=== PATIENT | female | born 1985 | race Caucasian/White ===

== ENCOUNTER 2020-08-25 16:21 | Observation (INO) | payer MEDICAID, SELFPAY ==
--- NOTE | ~2020-08-25 | CT_ITS ---
EXAMINATION: CT abdomen pelvis w con DATE: 08/25/2020 17:16 INDICATION: Right lower quadrant abdominal pain TECHNIQUE: Computed tomography (CT) of the abdomen and pelvis was performed without intravenous contr ast. Automated exposure control and iterative reconstruction technique were employed. Exam dose: 269 .61 mGy-cm total exam DLP. COMPARISON: None. FINDINGS: The lung bases are clear. Normal heart size. No pericardial or pleural effusion. The liver, spleen, pancreas, and adrenal glands are unremarkable. The gallbladder is present. No bile duct or pancreatic duct dilatation. 6 mm right renal cyst. Multiple up to 9 mm left renal cysts. No urinary tract calculus or hydroureteronephrosis. Normal caliber of the abdominal aorta. No intraperitoneal or retroperitoneal or pelvic mass lesion or adenopathy. Probable ruptured peripherally enhancing 1.3 cm left ovarian cyst. There is mild free fluid in the pe lvis. The uterus and adnexal areas are otherwise unremarkable. There are nondilated fluid containing small bowel segments with occasional air-fluid levels, suggesti ng mild adynamic ileus. There is a prominent of fecal material in the colon suggesting constipation.. The appendix is not definitively localized but no CT evidence of appendicitis is noted. Clinical cor relation is advised. No bowel obstruction, bowel wall thickening, pneumatosis or intraperitoneal free air. No suspicious osteolytic or osteoblastic lesions are noted. IMPRESSION: Probable ruptured 1.3 cm left ovarian cyst with mild free fluid in the pelvis Multiple subcentimeter renal cysts Appendix is not definitively localized. No apparent evidence of appendicitis. Clinical correlation is advised. Reviewed, dictated and finalized at [facility]. Reviewed, dictated and finalized at [facility]. STS' MODEL IMPRESSION: Probable ruptured 1.3 cm left ovarian cyst with mild free fluid in the pelvis Multiple subcentimeter renal cysts Appendix is not definitively localized. No apparent evidence of appendicitis. C linical correlation is advised.
--- NOTE | ~2020-08-25 | US_ITS ---
US pelvic complete DATE: 08/25/2020 19:06 INDICATION: Right adnexal pain TECHNIQUE: Real-time imaging of the pelvis COMPARISON: None FINDINGS: The uterus measures approximately 8 cm height, 4.1 cm anteroposterior and 5.3 cm transverse dimension. Approximately 1.3 cm hypoechoic lesion of the left ovary with surrounding vascularity, likely a small cyst. No free fluid is evident. Patient declined completion of the procedure prior to evaluation of the right ovary and adnexal area. IMPRESSION: Incomplete examination 1.3 cm left ovarian cyst Reviewed, dictated and finalized at [facility]. Reviewed, dictated and finalized at [facility]. ERGARTEN PARAPROFESSIONAL
[2020-08-25 16:23] VITALS: BP 151/96; PULSE 88; RESP 20; TEMP 36.7; O2SAT 100
[2020-08-25 16:47] LABS: Basophils Absolute Auto 0.1 K/mm3 (0.0-0.1); Basophils Percent Auto 0.4 % (0.2-1.2); Eosinophils Absolute Auto 0.1 K/mm3 (0-0.3); Hematocrit 42.8 % (37.0-47.0); Hemoglobin 14.1 g/dL (12.0-15.0); Immature Granulocyte Absolute 0.04 K/mm3 (0.00-0.031); Immature Granulocyte Percent A 0.3 % (0-0.5); Lymphocytes Absolute Auto 1.51 K/mm3 (0.9-3.2); Lymphocytes Percent Auto 13.1 % (18.3-44.2); Mean Corpuscular HGB Conc 32.9 g/dl (32-36); Mean Corpuscular Hemoglobin 28.7 pg (26-34); Monocytes Absolute Auto 1.1 K/mm3 (0.1-0.6); Monocytes Percent Auto 9.7 % (2.6-8.5); Neutrophils Absolute Auto 8.7 K/mm3 (1.3-6.7); Neutrophils Percent Auto 75.5 % (45.5-73.1); Platelet Count Result 187 k/mm3 (150-375); Red Blood Count 4.92 M/mm3 (4.2-5.4); Red Cell Distribution Width 13.3 % (11.5-14.5); White Blood Count 11.5 K/mm3 (4.5-10.0)
[2020-08-25 16:53] LABS: Add Urine Microscopic? YES; Amorphous Sediment Urine Few; Appearance Urine Cloudy (Clear); Bacteria Urine Trace /hpf; Bilirubin Urine Negative (Negative); Blood Urine Negative (Negative); Color Urine Yellow (Yellow); Glucose Urine UA Negative (Negative); Ketones Urine Negative (Negative); Leukocyte Esterase Ur Trace LEU/UL (Negative); Mucus Urine Rare /lpf; Nitrate Urine Negative (Negative); Protein Urine Negative (Negative); RBC Urine 0-2 /hpf (0-2); Specific Grav Ur 1.014 (1.001-1.035); Squamous Epithelial Cell Urine Few /hpf (Few); Urobilinogen Urine Negative mg/dL (<2.0)
[2020-08-25 16:59] LABS: Alanine Aminotransferase 11 U/L (4-35); Alkaline Phosphatase 38 U/L (38-126); Anion Gap -1 mmol/L (8-16); Aspartate Amino Transferase 19 U/L (14-36); Bilirubin,Total 0.4 mg/dL (0.2-1.3); Blood Urea Nitrogen 14 mg/dL (7-17); Calcium 9.3 mg/dL (8.4-10.2); Carbon Dioxide 32 mmol/L (22-30); Chloride 103 mmol/L (98-107); Estimated CRCL calculation 59 ml/min; Estimated Glomerular Filt Rate 56; Glucose 98 mg/dL (65-105); Lipase 69 U/L (23-300); Potassium 3.7 mmol/L (3.4-5.0); Sodium 134 mmol/L (137-145)
[2020-08-25] MEDS: MORPHINE SULFATE (*CRX) 4 MG/ML INJ IV PUSH ×3 (17:05→20:50)
--- NOTE | 2020-08-25 18:52 | PC.NURSE ---
rn called to ultrasound dept to medicate pt for pain. morphine 4 mg iv push given.
--- NOTE | 2020-08-25 19:43 | ED.GENADULT ---
HPI - General Adult General Chief complaint: Abdominal Pain Stated complaint: abdominal pain Time Seen by Provider: 08/25/20 16:53 History of Present Illness HPI narrative: Patient is a 35-year-old female who presents ER with right lower quadrant abdominal pain. Began last night and has increased in intensity throughout the day. Cannot move without having excruciating pain. No radiation. Denies urinary frequency urgency. Denies any nausea/vomiting/diarrhea/constipation. Has not had an appendectomy. Denies previous issues with her ovaries. She does not believe that she is because she has had a tubal ligation. Related Data Home Medications Medication Instructions Recorded Confirmed No Home Medications 08/25/20 08/25/20 Allergies Allergy/AdvReac Type Severity Reaction Status Date / Time No Known Allergies Allergy Mild Verified 08/25/20 16:25 Review of Systems Review of Systems: All systems reviewed & are unremarkable except as noted in HPI and below Constitutional: Constitutional: Denies chills, Denies fever(s) and Denies weakness ENT: Denies nasal congestion and Denies sore throat Cardiovascular: Cardiovascular: Denies chest pain and Denies radiating jaw, neck or arm pain Gastrointestinal: Gastrointestinal: Reports abdominal pain, Denies constipation, Denies diarrhea, Denies nausea and Denies vomiting Genitourinary: Genitourinary: Denies abnormal vaginal bleeding, Denies nocturia, Denies dysuria, Reports pelvic pain and Denies vaginal discharge PMFSH Past Medical History Medical History (Updated 08/25/20 @ 23:38 by Sha Ndiaye MD) Healthy female adult Surgical History Surgical History (Updated 08/25/20 @ 19:52 by Sha Ndiaye MD) History of tubal ligation Social History Social History (Updated 08/25/20 @ 19:53 by Sha Ndiaye MD) Substance use: never Gender identity (if verbalized by the patient): Female Exam Narrative: Exam Narrative: GENERAL: Uncomfortable-appearing, well-nourished, and in no acute distress. HEAD: Normocephalic, atraumatic. CHEST: Clear to auscultation. No respiratory distress. HEART: Regular rate and rhythm. Normal peripheral pulses. ABDOMEN: Soft, right lower quadrant tenderness with guarding, nondistended. : Normal external genitalia. Copious purulent discharge coming from the vagina with tenderness/CMT. Cervix without erythema and nonfriable. EXTREMITIES: Normal range of motion. No edema. SKIN: Warm, dry, no rash. NEURO: Alert and oriented x3. Course Course Emergency Course: Discussed with gynecology. Admit to his service with IV doxycycline and cefotetan. We will continue pain control through the night. Patient informed of diagnosis and treatment plan. Culture sent. Vital Signs Vital signs: Vital Signs Temperature 98.1 F 08/25/20 16:23 Pulse Rate 88 08/25/20 16:23 Respiratory Rate 20 08/25/20 16:23 Blood Pressure 151/96 H 08/25/20 16:23 Pulse Oximetry 100 08/25/20 16:23 Temperature 98.0 F 08/25/20 22:45 Pulse Rate 78 08/25/20 22:45 Respiratory Rate 18 08/25/20 22:45 Blood Pressure 118/90 08/25/20 22:45 Pulse Oximetry 100 08/25/20 22:45 Medical Decision Making Vital Signs Vital Signs: Vital Signs Temperature 98.1 F 08/25/20 16:23 Pulse Rate 88 08/25/20 16:23 Respiratory Rate 20 08/25/20 16:23 Blood Pressure 151/96 H 08/25/20 16:23 Pulse Oximetry 100 08/25/20 16:23 Temperature 98.0 F 08/25/20 22:45 Pulse Rate 78 08/25/20 22:45 Respiratory Rate 18 08/25/20 22:45 Blood Pressure 118/90 08/25/20 22:45 Pulse Oximetry 100 08/25/20 22:45 Lab Data Result diagrams: 08/25/20 16:37 08/25/20 16:37 Labs: Lab Results 08/25/20 08/25/20 08/25/20 Range/Units 16:35 16:37 16:37 WBC 11.5 H (4.5-10.0) K/mm3 RBC 4.92 (4.2-5.4) M/mm3 Hgb 14.1 (12.0-15.0) g/dL Hct 42.8 (37.0-47.0) % MCV 87.0 (80-10
[2020-08-25 20:11] VITALS: BP 142/98
[2020-08-25] MEDS: SODIUM CHLORIDE 0.9% IV 1,000 ML 999 ML IV CONT (20:49)
[2020-08-25] MEDS: cefoTEtan DISODIUM INJ 2 GM in DEXTROSE 5% IN WATER 50 ML IVPB (21:16)
[2020-08-25 21:17] VITALS: BP 136/85; PULSE 91; RESP 20; O2SAT 98
[2020-08-25] MEDS: metroNIDAZOLE 250 MG TABLET 500 MG PO (21:57)
[2020-08-25 22:45] VITALS: BP 118/90; PULSE 78; RESP 18; TEMP 36.7; O2SAT 100; BMI 19.5
[2020-08-25] MEDS: ONDANSETRON INJ 4 MG/2 ML VIAL IV PUSH (23:06)
[2020-08-25] MEDS: SODIUM CHLORIDE 0.9% IV 1,000 ML 125 ML IV CONT (23:07)
[2020-08-26 00:54] VITALS: O2SAT 100
--- NOTE | 2020-08-26 01:03 | ADMGEN ---
08/25/20 AT 2245, This patient, Rosana Caicedo, was admitted to 3 [facility] Surg Room 317-01. Patient/family oriented to hospital policies and general routines including ID bracelet, bed and alarms, visiting hours, pain management, procedures, bathroom and other care routines, personal items, smoking policy, room service/diet, and visiting hours. Information on how to activate the Rapid Response Team has been discussed. Patient/Family are encouraged to report perceived risks to care and to ask questions if they do not understand what they are told or what they should do.
[2020-08-26 05:40] VITALS: BP 123/76; PULSE 99; RESP 18; TEMP 36.9; O2SAT 99
[2020-08-26] MEDS: SODIUM CHLORIDE 0.9% IV 1,000 ML 125 ML IV CONT ×2 (05:54→15:13)
[2020-08-26] MEDS: MORPHINE SULFATE (*CRX) 4 MG/ML INJ IV PUSH (05:54)
[2020-08-26] MEDS: ONDANSETRON INJ 4 MG/2 ML VIAL IV PUSH (05:54)
--- NOTE | 2020-08-26 06:04 | PM.IMHP ---
H&P: HPI History of Present Illness Date/Time: 08/26/20 06:04 Chief Complaint: pain Narrative: Rosana Caicedo is a 35 year old female She to P2 status post tubal ligation 8 years ago was admitted through the ER with complaints of sudden right lower quadrant pain. She i has not eaten in about a day and half. Last BM was 2 days ago as well. She had a mildly elevated white count on admission with what appeared to be a left ruptured ovarian cyst on ultrasound under relatively negative CT scan. Antibiotics were started but she continues with fairly significant pain this a.m.. Review of Systems Review of Systems: All systems reviewed & are unremarkable except as noted in HPI and below PMFSH Past Medical History Medical History Healthy female adult Surgical History Surgical History History of tubal ligation Social History Social History Smoking status: Never smoker Second hand tobacco smoke exposure: No Alcohol intake: unknown Substance use: never Substance use type: does not use Gender identity (if verbalized by the patient): Female Spiritual care concerns: No Meds Home Medications and Allergies Home Medications Medication Instructions Recorded Confirmed Type No Home Medications 08/25/20 08/25/20 History Allergies Allergy/AdvReac Type Severity Reaction Status Date / Time No Known Allergies Allergy Mild Verified 08/25/20 16:25 Vital Signs Vital Signs - 24 hr 08/25/20 16:23 08/25/20 20:11 08/25/20 21:17 Temperature 98.1 F Pulse Rate 88 91 Respiratory Rate 20 20 Blood Pressure 151/96 H 142/98 H 136/85 Pulse Oximetry 100 98 08/25/20 22:45 08/26/20 00:54 08/26/20 05:40 Temperature 98.0 F 98.4 F Pulse Rate 78 99 Respiratory Rate 18 18 Blood Pressure 118/90 123/76 Pulse Oximetry 100 100 99 Exam Const: General: no acute distress Eyes: General: appearance normal, both eyes and all related structures Neck: Neck: supple and no JVD Thyroid: thyroid normal Resp: Effort & Inspection: normal respiratory effort Auscultation: clear to auscultation bilaterally Cardio: Rate: regular rate Rhythm: regular rhythm GI: Inspection: normal to inspection GI Palp: Yes abdominal tenderness Auscultation: normal bowel sounds Rectal Exam: deferred : General: Yes bladder normal to palpation External Female Exam: normal external appearance Speculum Exam - Vagina: normal vaginal discharge and No vaginal bleeding Speculum Exam - Cervix: nontender Bimanual exam- vagina & uterus: bladder normal to palpation and No Cervical tenderness present OB/external & speculum: No vaginal bleeding Skin: General skin exam: no rashes or lesions noted Extrem: General: normal to inspection and no edema Psych: Mental Status: mental status grossly normal Affect: normal affect H&P: Results Labs Labs: Short CBC 08/25/20 Range/Units 16:37 WBC 11.5 H (4.5-10.0) K/mm3 Hgb 14.1 (12.0-15.0) g/dL Hct 42.8 (37.0-47.0) % Plt Count 187 (150-375) k/mm3 BMP 08/25/20 16:37 Sodium 134 L Potassium 3.7 Chloride 103 Carbon Dioxide 32 H BUN 14 Creatinine 1.10 H Glucose 98 Calcium 9.3 Liver Function 08/25/20 Range/Units 16:37 Total Bilirubin 0.4 (0.2-1.3) mg/dL AST 19 (14-36) U/L ALT 11 (4-35) U/L Alkaline Phosphatase 38 (38-126) U/L Albumin 4.0 (3.5-5.1) g/dL Urine 08/25/20 Range/Units 16:35 Urine Color Yellow (Yellow) Urine Appearance Cloudy H (Clear) Urine pH 7.0 (5.0-9.0) Ur Specific [place] 1.014 (1.001-1.035) Urine Protein Negative (Negative) mg/dL Urine Glucose (UA) Negative (Negative) mg/dL Assessment and Plan Additional Plan Impression: Pelvic pain with mildly elevated white count Plan: IV antibiotics. Were repe
[2020-08-26 06:36] LABS: Basophils Percent Auto 0.3 % (0.2-1.2); Eosinophils Percent Auto 0.3 % (0-4.4); Hematocrit 39.5 % (37.0-47.0); Hemoglobin 12.8 g/dL (12.0-15.0); Immature Granulocyte Absolute 0.05 K/mm3 (0.00-0.031); Immature Granulocyte Percent A 0.4 % (0-0.5); Lymphocytes Percent Auto 10.1 % (18.3-44.2); Mean Corpuscular HGB Conc 32.4 g/dl (32-36); Mean Corpuscular Hemoglobin 28.9 pg (26-34); Mean Corpuscular Volume 89.2 fl (80-100); Mean Platelet Volume 11.1 fl (7.4-10.4); Monocytes Absolute Auto 0.9 K/mm3 (0.1-0.6); Monocytes Percent Auto 7.2 % (2.6-8.5); Neutrophils Absolute Auto 9.7 K/mm3 (1.3-6.7); Neutrophils Percent Auto 81.7 % (45.5-73.1); Platelet Count Result 160 k/mm3 (150-375); Red Blood Count 4.43 M/mm3 (4.2-5.4); Red Cell Distribution Width 13.2 % (11.5-14.5); White Blood Count 11.9 K/mm3 (4.5-10.0)
[2020-08-26 06:45] LABS: Anion Gap 2 mmol/L (8-16); Blood Urea Nitrogen 10 mg/dL (7-17); Calcium 7.9 mg/dL (8.4-10.2); Carbon Dioxide 28 mmol/L (22-30); Chloride 103 mmol/L (98-107); Estimated CRCL calculation 68 ml/min; Estimated Glomerular Filt Rate > 60; Glucose 97 mg/dL (65-105); Potassium 4.1 mmol/L (3.4-5.0); Sodium 133 mmol/L (137-145)
[2020-08-26] MEDS: metroNIDAZOLE 250 MG TABLET 500 MG PO ×2 (09:00→17:21)
[2020-08-26] MEDS: cefoTEtan DISODIUM INJ 2 GM in DEXTROSE 5% IN WATER 50 ML IVPB ×2 (09:00→20:29)
[2020-08-26] MEDS: HYDROcodone/acetaminophen (*CRX) 5-325 MG TABLET 1 TAB PO ×3 (09:59→20:30)
[2020-08-26 14:00] VITALS: BP 103/68; PULSE 84; RESP 16; TEMP 36.7; O2SAT 98
--- NOTE | 2020-08-26 14:17 | PM.CNGS ---
Assessment and Plan Assessment and plan (1) Abdominal pain: Code(s): R10.9 - Unspecified abdominal pain Status: Acute Assessment and Plan: Dr. Vazquez has reviewed the CT scan with radiology. Still unable to identify the appendix on the CT. The patient's clinical presentation does not strongly correlate with acute appendicitis. Her history and presentation of symptoms is atypical and she does not have focal tenderness on exam. We would recommend to continue with IV antibiotic treatment and monitoring at this time. Typically, with acute uncomplicated appendicitis, this could be treated conservatively with antibiotics with the risk of recurrence or failure of therapy. Therefore, could consider a course of oral antibiotics and monitoring. Okay to allow her to eat a regular diet and monitor her symptoms. Continue analgesics as needed. (2) Acute PID (pelvic inflammatory disease): Code(s): N73.0 - Acute parametritis and pelvic cellulitis Status: Acute Assessment and Plan: Management per Gynecology. Additional Plan I discussed the case and plan of care with Dr. Vazquez. Thank you for allowing us to see the patient in consultation and we will continue to follow along. History of Present Illness Consult details Consult date: 08/26/20 Reason for consult: abdominal pain Requesting physician: Andrea Etienne MD Narrative: This is a 35-year-old female who presented to the emergency department last night with complaints of abdominal pain. The patient reports a sudden onset of bilateral leg pain 2 nights ago. The pain began migrating up to her right lower quadrant of her abdomen. The patient reports the constant abdominal pain since then. Due to the unrelenting pain, she presented to the emergency department for further evaluation. CT scan of abdomen and pelvis showed probable ruptured 1.3 cm left ovarian cyst with mild free fluid in the pelvis. There is also mention that the appendix is not definitively located on the CT. Pelvic ultrasound attempted with 1.3 cm left ovarian cyst noted, with ultrasound stopped due to patient refusal of completing the exam. Labs revealed a white blood cell count of 11,500. She was found to have copious vaginal discharge on exam in the ER and cultures were sent. Trichomonas came back positive, and others are pending. She is admitted to gynecology and was started on IV doxycycline and cefotetan. The patient's pain continued to be significant into this morning. Our service has been consulted for evaluation of her abdominal pain to rule out acute appendicitis. The patient is now seen on medical floor. She reports her overall abdominal pain has improved since admission. No other complaints at this time. Review of Systems Constitutional: Constitutional: Reports as per HPI, Denies chills, Denies fatigue, Denies fever(s) and Denies headache(s) Eyes: Eyes: Reports no additional eye complaints, Denies change in vision, Denies diplopia and Denies loss of vision ENT: Reports Normal hearing present, Denies dizziness and Denies headache(s) Cardiovascular: Cardiovascular: Reports no additional cardiovascular complaints, Denies chest pain, Denies syncope, Denies leg edema, Denies lightheadedness, Denies radiating jaw, neck or arm pain and Denies dyspnea Respiratory: Respiratory: Reports no additional respiratory complaints, Denies cough, Denies dyspnea and Denies wheezing Gastrointestinal: Gastrointestinal: Reports as per HPI, Reports no additional gastrointestinal complaints, Reports abdominal pain, Denies bloating, Denies change in bowel habits, Denies loose stools, Denies nausea and Denies vomiting Genitourinary: Genitourinary: Denies hematuria and Denies dysuria Musculoskeletal: Musculoskeletal: Reports no additional musculoskeletal complaints, Denies deformity, Denies joint swelling, Denies radiating pain into limb and Denies tingling Integumentary/Breasts: Skin/Breast: Denies pruritu
[2020-08-26] MEDS: MAGNESIUM CITRATE 300 ML BTL 150 ML PO (15:13)
[2020-08-26 22:00] VITALS: BP 106/72; PULSE 84; RESP 20; TEMP 37.2; O2SAT 100
[2020-08-27] MEDS: SODIUM CHLORIDE 0.9% IV 1,000 ML 125 ML IV CONT (02:03)
[2020-08-27 06:00] VITALS: BP 109/73; PULSE 93; RESP 20; TEMP 36.9; O2SAT 98
[2020-08-27] MEDS: HYDROcodone/acetaminophen (*CRX) 5-325 MG TABLET 1 TAB PO (07:36)
[2020-08-27 08:05] LABS: Basophils Percent Auto 0.3 % (0.2-1.2); Eosinophils Absolute Auto 0.1 K/mm3 (0-0.3); Eosinophils Percent Auto 1.4 % (0-4.4); Hematocrit 33.5 % (37.0-47.0); Immature Granulocyte Absolute 0.02 K/mm3 (0.00-0.031); Immature Granulocyte Percent A 0.3 % (0-0.5); Immature Platelet Fraction Pct 6.7 % (0.9-11.2); Lymphocytes Absolute Auto 1.02 K/mm3 (0.9-3.2); Lymphocytes Percent Auto 13.4 % (18.3-44.2); Mean Corpuscular HGB Conc 32.8 g/dl (32-36); Mean Corpuscular Hemoglobin 29.2 pg (26-34); Mean Corpuscular Volume 88.9 fl (80-100); Monocytes Absolute Auto 0.9 K/mm3 (0.1-0.6); Monocytes Percent Auto 12.2 % (2.6-8.5); Neutrophils Absolute Auto 5.5 K/mm3 (1.3-6.7); Neutrophils Percent Auto 72.4 % (45.5-73.1); Platelet Count Result 138 k/mm3 (150-375); Red Blood Count 3.77 M/mm3 (4.2-5.4); Red Cell Distribution Width 13.5 % (11.5-14.5); White Blood Count 7.6 K/mm3 (4.5-10.0)
--- NOTE | 2020-08-27 08:05 | P.PNOB_ITS ---
OB - PN: Subj Subjective Date/time seen: 08/27/20 08:05 Interval history: maybe a bit better. trich on micro . gc and ct pending OB - PN: Obj Data Labs CBC & Chem 7: 08/27/20 07:57 08/26/20 06:19 Labs: Laboratory Results - last 24 hr 08/27/20 07:57 WBC 7.6 RBC 3.77 L Hgb 11.0 L Hct 33.5 L MCV 88.9 MCH 29.2 MCHC 32.8 RDW 13.5 Plt Count 138 L MPV 11.0 H Immature Gran % (Auto) 0.3 Neut % (Auto) 72.4 Lymph % (Auto) 13.4 L [place] % (Auto) 12.2 H Eos % (Auto) 1.4 Baso % (Auto) 0.3 Lymph # (Auto) 1.02 [place] # (Auto) 0.9 H Eos # (Auto) 0.1 Baso # (Auto) 0.0 Abs Immat Gran (auto) 0.02 Absolute Neuts (auto) 5.5 Absolute Nucleated RBC 0.0 Nucleated RBC % 0.0 % Immature Plt Fraction 6.7 OB - PN A/P Plan Comments: suspected pid trich plan continue abx add flagyl Time Spent With Patient Time: Total time spent is greater than 50% in coordination of care (as documented) at patient's floor/unit and/or counseling patient: Review of Systems Review of Systems: All systems reviewed & are unremarkable except as noted in HPI and below Exam Const: General: no acute distress Eyes: General: appearance normal, both eyes and all related structures Neck: Neck: supple and no JVD Thyroid: thyroid normal Resp: Effort & Inspection: normal respiratory effort Auscultation: clear to auscultation bilaterally Cardio: Rate: regular rate Rhythm: regular rhythm GI: Inspection: normal to inspection GI Palp: Yes abdominal tenderness and Yes Soft to palpation : General: Yes bladder normal to palpation External Female Exam: normal external appearance Speculum Exam - Vagina: normal vaginal discharge and No vaginal bleeding Speculum Exam - Cervix: nontender Bimanual exam- vagina & uterus: bladder normal to palpation and No Cervical tenderness present OB/external & speculum: No vaginal bleeding Skin: General skin exam: no rashes or lesions noted Extrem: General: normal to inspection and no edema Psych: Mental Status: mental status grossly normal Affect: normal affect
[2020-08-27] MEDS: cefoTEtan DISODIUM INJ 2 GM in DEXTROSE 5% IN WATER 50 ML IVPB (08:40)
--- NOTE | 2020-08-27 09:56 | PM.PNGS ---
Progress Note: A&P Assessment and Plan (1) Abdominal pain: Code(s): R10.9 - Unspecified abdominal pain Status: Acute Assessment and Plan: Clinically improving with current treatment. Patient's abdominal pain has improved and she is less tender on exam. Okay from our standpoint to discharge the patient when okay with Gynecology. We would recommend to treat her with a course of antibiotics and monitor the patient. I discussed with her to return to the ER if having worsening abdominal pain or fevers. Follow-up only as needed. Will give a dose of milk of magnesia today as well for her constipation. (2) Acute PID (pelvic inflammatory disease): Code(s): N73.0 - Acute parametritis and pelvic cellulitis Status: Acute Assessment and Plan: Trich +, G/C pending. Management per Gynecology. Additional Plan Discussed the patient's case with Dr. Vazquez. Subjective Subjective Date/Time Seen: 08/27/20 09:56 Patient reports: no new complaints, feels better, pain is less, tolerating a regular diet, flatus and no bowel movement Interval history: Patient seen this morning and feeling better. States her overall pain has improved and she feels less tender. She reports taking the mag citrate yesterday with no BM yet. Review of Systems Review of Systems: All systems reviewed & are unremarkable except as noted in HPI and below Constitutional: Constitutional: Denies chills and Denies fever(s) Exam Const: General: no acute distress, alert and awake Orientation/consciousness: patient oriented x3 GI: Inspection: normal to inspection and non-distended GI Palp: Yes Soft to palpation, Yes Tenderness to palpation present (GI) (diffusely tender, less tender today), No Guarding due to palpation present (GI) and No Rebound tenderness present Auscultation: normal bowel sounds Skin: General skin exam: normal color Neuro: General: moves all extremities and no focal motor deficits Psych: Appearance: grossly normal Insight: Good insight present (Psych) Judgement: Good judgement present (Psych) Objective Data Vital Signs Vital Signs: Vital Signs - 24 hr 08/26/20 14:00 08/26/20 22:00 08/27/20 06:00 Temperature 98.1 F 99.0 F 98.4 F Pulse Rate 84 84 93 Respiratory Rate 16 20 20 Blood Pressure 103/68 106/72 109/73 Pulse Oximetry 98 100 98 Intake/Output Intake/Output: Intake & Output 08/24/20 08/25/20 08/26/20 08/27/20 23:59 23:59 23:59 23:59 Intake Total 1150 4620 300 Output Total 650 500 Balance 1150 3970 -200 Meds/Results Medications: Active Medications Generic Name Dose Route Start Last Admin Trade Name Freq PRN Reason Stop Dose Admin Acetaminophen 650 mg 08/25/20 21:01 Acetaminophen 325 Mg Tablet PO Q4H PRN Mild Pain (1-3) or Fever Hydrocodone Bitart/Acetaminophen 1 tab 08/25/20 21:01 08/27/20 07:36 Hydrocodone/Acetaminophen (*Crx) 5-325 Mg Tablet PO 1 tab Q4H PRN Administration Pain Rated 4-6 Doxycycline Hyclate 100 mg in 100 mls @ 100 mls/hr 08/26/20 10:00 08/27/20 09:14 Vibramycin 100 Mg/D5w 100 Ml IVPB 100 mls/hr Q12H PHOEBE Administration Cefotetan Disodium 2 gm/ 50 mls @ 100 mls/hr 08/26/20 09:00 08/27/20 09:10 Dextrose IVPB Infused Q12HR PHOEBE Infusion Sodium Chloride 1,000 mls @ 125 mls/hr 08/25/20 21:05 08/27/20 02:03 Normal Saline Iv IV CONT 125 mls/hr .Q8H PHOEBE Administration Magnesium Hydroxide 30 ml 08/27/20 09:54 Magnesium Hydroxide Susp 30 Ml Udc PO 08/27/20 09:55 ONCE ONE Metronidazole 500 mg 08/27/20 12:00 Metronidazole 250 Mg Tablet PO Q6HR PHOEBE Morphine Sulfate 4 mg 08/25/20 21:01 08/26/20 05:54 Morphine Sulfate (*Crx) 4 Mg/Ml Inj IV PUSH 4 mg Q2H PRN Administration Pain Rated 7-10 Ondansetron HCl 4 mg 08/25/20 21:01 08/26/20 05:54 Ondansetron Inj 4 Mg/2 Ml Vial IV PUSH 4 mg Q4H PRN Administration Nausea Radiology Results: ITS Impressions
[2020-08-27] MEDS: MAGNESIUM HYDROXIDE SUSP 30 ML UDC PO (10:32)
--- NOTE | 2020-08-27 12:15 | PM.DS ---
DS: Admitting Diagnosis Admitting Diagnosis Admitting Diagnosis: pid trichomaniasis DS: Summary Hospital Course Hospital Course: admitted through ed w suspected pid. surgery ruled out appy. iv abx given. wbc normalized. home on flagyl and doxycycline Time Spent with Patient Time attestation: Total time spent providing and/or coordinating discharge services: Exam Const: General: no acute distress Eyes: General: appearance normal, both eyes and all related structures Neck: Neck: supple and no JVD Thyroid: thyroid normal Resp: Effort & Inspection: normal respiratory effort Auscultation: clear to auscultation bilaterally Cardio: Rate: regular rate Rhythm: regular rhythm GI: Inspection: non-distended GI Palp: Yes Soft to palpation, No Tenderness to palpation present (GI) and No Guarding due to palpation present (GI) Auscultation: normal bowel sounds : General: Yes bladder normal to palpation External Female Exam: normal external appearance Speculum Exam - Vagina: normal vaginal discharge and No vaginal bleeding Speculum Exam - Cervix: nontender Bimanual exam- vagina & uterus: bladder normal to palpation and No Cervical tenderness present OB/external & speculum: No vaginal bleeding Skin: General skin exam: no rashes or lesions noted Extrem: General: normal to inspection and no edema Psych: Mental Status: mental status grossly normal Affect: normal affect DS: Data Data Completed and Pending Labs on day of discharge: Labs from last 24 hours 08/27/20 07:57 WBC 7.6 RBC 3.77 L Hgb 11.0 L Hct 33.5 L MCV 88.9 MCH 29.2 MCHC 32.8 RDW 13.5 Plt Count 138 L MPV 11.0 H Immature Gran % (Auto) 0.3 Neut % (Auto) 72.4 Lymph % (Auto) 13.4 L [place] % (Auto) 12.2 H Eos % (Auto) 1.4 Baso % (Auto) 0.3 Lymph # (Auto) 1.02 [place] # (Auto) 0.9 H Eos # (Auto) 0.1 Baso # (Auto) 0.0 Abs Immat Gran (auto) 0.02 Absolute Neuts (auto) 5.5 Absolute Nucleated RBC 0.0 Nucleated RBC % 0.0 % Immature Plt Fraction 6.7 Discharge Plan Discharge Attending physician on discharge: Andrea Etienne Consulting providers: Delon Mendoza ; Ceasar Vazquez Discharging Clinician: Andrea Etienne Patient Disposition: Hospice - Home Activity: may shower and pelvic rest Diet: heart healthy Stand Alone Forms: General Discharge Information Follow-up/Referrals: Andrea Etienne MD [Physician] - Discharge Medications: New metronidazole [Flagyl] 500 mg tablet 500 mg PO Q8H Qty: 20 RF: 0 doxycycline hyclate 100 mg tablet 100 mg PO DAILY Qty: 10 RF: 0 No Action No Home Medications RF: 0 Date of admission: 08/25/20 21:02 Primary Care Provider: PHYSICIAN,SUPERINTENDENT SYSTEM OPERATION Admitting Provider: Andrea Etienne Attending physician on admission: Andrea Etienne Condition: Stable Quality VTE Prophylaxis VTE prophylaxis: mechanical ordered
[2020-08-27] MEDS: metroNIDAZOLE 250 MG TABLET 500 MG PO (13:07)
== END 2020-08-27 13:20 | disposition home or self-care (01) ==
LOC: ANHED 21:10 → ANH3MEDSUR 21:44
PROVIDERS: Admitting Provider Obstetrics & Gynecology; Emergency Provider Emergency Medicine; Visit Provider Obstetrics & Gynecology
DX: N73.0 Acute parametritis and pelvic cellulitis (principal); A59.9 Trichomoniasis, unspecified; N83.202 Unspecified ovarian cyst, left side
CPT/HCPCS: 36415; 74177; 76856; 80048; 80053; 81001; 81025; 83690; 85025; 85055; 87070; 87147; 87491; 87591; 87808; 96361; 96365; 96366; 96367; 96375; 96376; 99285; A9270; G0378; G0379; J2270; J2405; J7030; Q9967

== ENCOUNTER 2021-07-12 07:49 | Emergency (ER) | payer OTHER, SELFPAY ==
--- NOTE | ~2021-07-12 | XR_ITS ---
EXAMINATION: XR chest 2V DATE: 07/12/2021 08:35 INDICATION: Chest tightness. TECHNIQUE: Frontal and lateral views of the chest were obtained. COMPARISON: Chest 2 views 05/11/2010 FINDINGS: The chest demonstrates clear lungs without pneumonia, pleural effusion, or pneumothorax. Th e heart size is normal. IMPRESSION: 1. No acute cardiopulmonary disease. Reviewed, dictated and finalized at location A. E AGENT
[2021-07-12 07:57] VITALS: BP 151/110; PULSE 106; RESP 18; TEMP 36.8; O2SAT 100
--- NOTE | 2021-07-12 08:00 | ECG_ITS ---
Measurements Intervals [place] Rate: 98 P: 84 SD: 166 QRS: 60 QRSD: 85 T: 69 QT: 339 QTc: 434 Interpretive Statements SINUS RHYTHM VENTRICULAR PREMATURE COMPLEX RIGHT ATRIAL ENLARGEMENT LEFT ATRIAL ENLARGEMENT BASELINE ARTIFACT- I, II, AVR, AVL BORDERLINE ECG Electronically Signed On 07-12-2021 11:58:42 [employer]ILVIC[employer] PROFESSOR by Jose Perez D.O.
[2021-07-12 08:18] VITALS: PULSE 85
[2021-07-12 08:21] LABS: Basophils Percent Auto 0.4 % (0.2-1.2); Eosinophils Absolute Auto 0.2 K/mm3 (0-0.3); Eosinophils Percent Auto 1.5 % (0-4.4); Hematocrit 43.1 % (37.0-47.0); Hemoglobin 14.2 g/dL (12.0-15.0); Immature Granulocyte Absolute 0.04 K/mm3 (0.00-0.031); Immature Granulocyte Percent A 0.4 % (0-0.5); Lymphocytes Absolute Auto 1.51 K/mm3 (0.9-3.2); Lymphocytes Percent Auto 13.8 % (18.3-44.2); Mean Corpuscular HGB Conc 32.9 g/dl (32-36); Mean Corpuscular Hemoglobin 29.1 pg (26-34); Mean Corpuscular Volume 88.3 fl (80-100); Mean Platelet Volume 10.8 fl (7.4-10.4); Monocytes Absolute Auto 0.9 K/mm3 (0.1-0.6); Monocytes Percent Auto 8.5 % (2.6-8.5); Neutrophils Absolute Auto 8.3 K/mm3 (1.3-6.7); Neutrophils Percent Auto 75.4 % (45.5-73.1); Platelet Count Result 174 k/mm3 (150-375); Red Blood Count 4.88 M/mm3 (4.2-5.4); Red Cell Distribution Width 13.2 % (11.5-14.5)
[2021-07-12 08:31] LABS: INR 0.9; Prothrombin Time 12.5 Seconds (11.1-14.7)
[2021-07-12 08:32] LABS: Partial Thromboplastin Time 29.8 SECONDS (22.3-36.8)
[2021-07-12 08:37] LABS: Alanine Aminotransferase 21 U/L (4-35); Albumin Level 4.5 g/dL (3.5-5.1); Alkaline Phosphatase 38 U/L (38-126); Anion Gap 8 mmol/L (8-16); Aspartate Amino Transferase 28 U/L (14-36); Bilirubin,Total 0.4 mg/dL (0.2-1.3); Blood Urea Nitrogen 18 mg/dL (7-17); Calcium 9.1 mg/dL (8.4-10.2); Carbon Dioxide 28 mmol/L (22-30); Chloride 100 mmol/L (98-107); Estimated CRCL calculation 70 ml/min; Estimated Glomerular Filt Rate > 60; Glucose 90 mg/dL (65-110); Lipase 86 U/L (23-300); Potassium 3.6 mmol/L (3.4-5.0); Sodium 136 mmol/L (137-145)
[2021-07-12 08:47] LABS: Add Urine Microscopic? YES; Appearance Urine Cloudy (Clear); Bilirubin Urine Negative (Negative); Blood Urine 3+ (Negative); Color Urine Yellow (Yellow); Glucose Urine UA Negative (Negative); Ketones Urine Negative (Negative); Leukocyte Esterase Ur 2+ LEU/UL (Negative); Mucus Urine Rare /lpf; Nitrate Urine Negative (Negative); Protein Urine 3+ mg/dL (Negative); RBC Urine >75 /hpf (0-2); Specific Grav Ur 1.018 (1.001-1.035); Urobilinogen Urine Negative mg/dL (<2.0); WBC Urine >75 /hpf
[2021-07-12 08:47] LABS: Troponin I < 0.012 ng/mL (0.000-0.034)
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
[2021-07-12] MEDS: KETOROLAC 30 MG/ML VIAL (*BKC) IV PUSH (10:51)
[2021-07-12] MEDS: SODIUM CHLORIDE 0.9% IV 500 ML 999 ML IV CONT (10:52)
[2021-07-12 12:04] LABS: Troponin I < 0.012 ng/mL (0.000-0.034)
[2021-07-12 12:51] VITALS: BP 126/89; PULSE 78; RESP 16; O2SAT 99
== END 2021-07-12 12:53 | disposition home or self-care (01) ==
PROVIDERS: Emergency Provider Emergency Medicine
DX: K08.89 Other specified disorders of teeth and supporting structures (principal); N30.00 Acute cystitis without hematuria; R07.9 Chest pain, unspecified
CPT/HCPCS: 36415; 71046; 80053; 81001; 81025; 83690; 84484; 85025; 85610; 85730; 87077; 87086; 87088; 87186; 93005; 96365; 96375; 99284; J0696; J1885; J7040

== ENCOUNTER 2021-07-29 13:07 | Emergency (ER) | payer OTHER, SELFPAY ==
--- NOTE | ~2021-07-29 | CT_ITS ---
EXAMINATION: CT abdomen pelvis wo con DATE: 07/29/2021 15:39 INDICATION: Right flank pain. Nausea and vomiting. TECHNIQUE: Computed tomography (CT) of the abdomen and pelvis was performed without intravenous contr ast. Automated exposure control and iterative reconstruction technique were employed. The dose-length product was 217.04 mGy-cm. COMPARISON: CT abdomen and pelvis 08/25/2020 FINDINGS: The visualized portions of the lung bases demonstrate minimal atelectasis. No pleural effus ion. The heart size is normal. No pericardial effusion. The liver, gallbladder, spleen, pancreas, and adrenal glands, and kidneys are normal. There is no urolithiasis. There are no dilated loops of augusta l. There is a large volume of stool in the colon. The visualized portion of the appendix is normal. T here are no pathologically enlarged lymph nodes. There is no free intraperitoneal fluid. There is mil d lumbar spondylosis. IMPRESSION: 1. No etiology for the patient's symptoms. Reviewed, dictated and finalized at location A. [employer]
[2021-07-29 13:42] VITALS: BP 155/94; PULSE 99; RESP 18; TEMP 36.8; O2SAT 99
[2021-07-29 14:02] LABS: Add Urine Microscopic? YES; Appearance Urine Sl Cloudy (Clear); Bilirubin Urine Negative (Negative); Blood Urine 1+ (Negative); Color Urine Light Yellow (Yellow); Glucose Urine UA Negative (Negative); Ketones Urine Negative (Negative); Leukocyte Esterase Ur 1+ LEU/UL (Negative); Nitrate Urine Positive (Negative); Protein Urine Negative (Negative); Urobilinogen Urine 0.2 mg/dL (0.2-1.0); pH Urine 7.5 (5.0-8.0)
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
[2021-07-29 14:20] LABS: Bacteria Urine 3+ /hpf; Squamous Epithelial Cell Urine Rare /hpf (Few)
[2021-07-29] MEDS: KETOROLAC 30 MG/ML VIAL (*BKC) IM (14:37)
[2021-07-29 14:44] LABS: Basophils Absolute Auto 0.02 K/mm3 (0.00-0.10); Basophils Percent Auto 0.2 % (0.0-1.0); Eosinophils Absolute Auto 0.01 K/mm3 (0.02-0.50); Eosinophils Percent Auto 0.1 % (1.0-6.0); Hematocrit 44.1 % (35.0-49.0); Hemoglobin 14.5 g/dL (12.0-15.0); Immature Granulocyte Absolute 0.04 K/mm3 (0.00-0.00); Immature Granulocyte Percent A 0.5 % (0.0-0.0); Immature Platelet Fraction Pct 5.5 % (1.0-7.0); Lymphocytes Absolute Auto 0.55 K/mm3 (1.10-4.50); Lymphocytes Percent Auto 6.7 % (18.0-42.0); Mean Corpuscular HGB Conc 32.9 g/dL (32.0-36.0); Mean Corpuscular Hemoglobin 29.1 pg (27.0-31.0); Mean Corpuscular Volume 88.4 fL (78.0-102.0); Mean Platelet Volume 11.2 fl (9.2-11.8); Monocytes Absolute Auto 0.86 K/mm3 (0.10-0.90); Monocytes Percent Auto 10.5 % (2.0-11.0); Neutrophils Absolute Auto 6.7 K/mm3 (1.7-7.2); Platelet Count Result 138 K/mm3 (150-420); Red Blood Count 4.99 M/mm3 (4.20-5.40); White Blood Count 8.2 K/mm3 (4.8-10.8)
[2021-07-29 15:00] LABS: Alanine Aminotransferase 24 U/L (14-59); Albumin Level 3.3 g/dL (3.4-5.0); Alkaline Phosphatase 57 U/L (46-116); Anion Gap 10 mmol/L (8-16); Aspartate Amino Transferase 12 U/L (15-37); Bilirubin,Total 0.4 mg/dL (0.00-1.00); Blood Urea Nitrogen 8 mg/dL (7-18); Calcium 8.9 mg/dL (8.5-10.1); Carbon Dioxide 27 mmol/L (21-32); Chloride 96 mmol/L (98-108); Estimated CRCL calculation 70 ml/min; Estimated Glomerular Filt Rate > 60; Glucose 106 mg/dL (70-99); Lipase 60 U/L (73-393); Osmolality Calculated 274 mOsm/kg (285-295); Potassium 4.2 mmol/L (3.5-5.1); Sodium 133 mmol/L (136-145); Total Protein 6.8 g/dL (6.4-8.2)
[2021-07-29 15:07] LABS: Lactic Acid Reflex 1.2 mmol/L (0.4-2.0)
[2021-07-29] MEDS: cefTRIAXone 1 GM VIAL IM (16:12)
[2021-07-29 16:20] VITALS: BP 119/83; PULSE 111; RESP 16; TEMP 35.9; O2SAT 100
--- NOTE | 2021-08-01 16:27 | PC.NURSE ---
pt's urine culture report reviewed by erp, dr. Reyes. pt called et message left on voice mail. pt's contact Haris called and asked to have pt return call amber.
--- NOTE | 2021-08-04 07:46 | PC.NURSE ---
call to pt, phone goes directly to voicemail, message left to return call to er.
--- NOTE | 2021-08-04 07:49 | PC.NURSE ---
call placed to slava alejo pt emergency contact. no answer. message to return call for pt.
--- NOTE | 2021-08-05 14:30 | PC.NURSE ---
pt contacted. states she will f/u with her own pmd.
== END 2021-07-29 16:23 | disposition home or self-care (01) ==
PROVIDERS: Emergency Provider Emergency Medicine
DX: N30.01 Acute cystitis with hematuria (principal)
CPT/HCPCS: 36415; 74176; 80053; 81001; 83605; 83690; 85025; 85055; 87077; 87086; 87088; 87186; 96372; 99283; 99284; J0696; J1885

== ENCOUNTER 2022-06-26 16:55 | Emergency (ER) | payer OTHER, SELFPAY ==
[2022-06-26] VITALS (18 sets, daily range): BP systolic 119–164; BP diastolic 78–104; PULSE 60–87; RESP 10–21; TEMP 36.6; O2SAT 96–100
--- NOTE | ~2022-06-26 | CT_ITS ---
EXAMINATION: CT brain wo con DATE: 06/26/2022 18:23 INDICATION: Headache and neck pain for 5 days TECHNIQUE: Computed tomography (CT) of the head was performed without intravenous contrast. The mA wa s adjusted according to patient size. Iterative reconstruction technique was employed. Exam dose: 60 5.33 mGy-cm total exam DLP. COMPARISON: None FINDINGS: Approximately 6.5 x 6.9 mm abnormal asymmetric hyperdensity is noted in the posterior right parietal lobe. This is likely a small parietal lobe hematoma. Differential diagnosis includes contus ion, hypertensive bleed, small focal hemorrhagic infarct, vascular malformation, hyperdense mass incl uding possible solitary metastasis. MR brain imaging may be helpful for further evaluation. No intracranial mass lesion or hemorrhage or cerebrovascular accident is noted otherwise. There is no midline shift or mass effect. Normal calhoun-white matter differentiation. Normal ventricular size. No subdural or epidural hematoma. The orbital contents are unremarkable. No fracture or bone destruction of the cranial vault. Included paranasal sinuses and mastoid air cells are normally developed and aerated. IMPRESSION: Approximately 6.5 x 6.9 mm abnormal hyperdensity in the posterior right parietal lobe, l ikely a small hematoma or contusion or vascular malformation; differential diagnosis includes hyperte nsive bleed, small focal hemorrhagic infarct, hyperdense solid mass including possible solitary cereb ral metastasis. Consider MRI brain for further evaluation. Reviewed, dictated and finalized at Location [facility]. Reviewed, dictated and finalized at location B. ER TECHNICIAN IMPRESSION: Approximately 6.5 x 6.9 mm abnormal hyperdensity in the posterior right parietal lobe, likely a small hematoma or contusion or vascular malformat ion; differential diagnosis includes hypertensive bleed, small focal hemorrhagi c infarct, hyperdense solid mass including possible solitary cerebral metastasi s. Consider MRI brain for further evaluation.
--- NOTE | ~2022-06-26 | CT_ITS ---
EXAMINATION: CT cervical spine wo con DATE: 06/26/2022 18:23 INDICATION: Neck pain TECHNIQUE: Computed tomography (CT) of the cervical spine was performed without intravenous contrast. The dose-length product was 251 mGy-cm. COMPARISON: No prior studies for comparison. FINDINGS: There is straightening of cervical lordosis. Vertebral body heights are maintained. There i s mild uncinate degenerative change at C5-6 and C6-7. Lateral masses are normally aligned. Odontoid p rocess is normal. Craniovertebral junction is normal. No significant paraspinal soft tissue abnormali ty. Lung apices are unremarkable. IMPRESSION: 1. No acute abnormality of the cervical spine. 2: Mild cervical spondylosis. Reviewed, dictated and finalized at location A. O FREQUENCY ENGINEER
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
[2022-06-26] MEDS: diphenhydrAMINE HCl INJ 50 MG/ML VIAL 25 MG IV PUSH (18:11)
[2022-06-26] MEDS: METOCLOPRAMIDE HCL INJ 10 MG/2 ML VIAL IV PUSH (18:12)
[2022-06-26] MEDS: SODIUM CHLORIDE 0.9% IV 1,000 ML 999 ML IV CONT (18:32)
[2022-06-26 19:35] LABS: Basophils Percent Auto 0.5 % (0.2-1.2); Eosinophils Absolute Auto 0.2 K/mm3 (0-0.3); Eosinophils Percent Auto 2.2 % (0-4.4); Hematocrit 46.2 % (37.0-47.0); Immature Granulocyte Absolute 0.02 K/mm3 (0.00-0.031); Immature Granulocyte Percent A 0.3 % (0-0.5); Lymphocytes Absolute Auto 1.46 K/mm3 (0.9-3.2); Lymphocytes Percent Auto 19.6 % (18.3-44.2); Mean Corpuscular HGB Conc 32.5 g/dl (32-36); Mean Corpuscular Hemoglobin 29.4 pg (26-34); Mean Corpuscular Volume 90.6 fl (80-100); Mean Platelet Volume 12.1 fl (7.4-10.4); Monocytes Absolute Auto 0.7 K/mm3 (0.1-0.6); Monocytes Percent Auto 9.5 % (2.6-8.5); Neutrophils Absolute Auto 5.1 K/mm3 (1.3-6.7); Neutrophils Percent Auto 67.9 % (45.5-73.1); Platelet Count Result 203 k/mm3 (150-375); Red Cell Distribution Width 13.1 % (11.5-14.5); White Blood Count 7.4 K/mm3 (4.5-10.0)
[2022-06-26 19:45] LABS: Anion Gap 5 mmol/L (8-16); Blood Urea Nitrogen 10 mg/dL (7-17); Calcium 8.3 mg/dL (8.4-10.2); Carbon Dioxide 26 mmol/L (22-30); Chloride 104 mmol/L (98-107); Estimated CRCL calculation 75 ml/min; Estimated Glomerular Filt Rate > 60; Glucose 91 mg/dL (65-110); Potassium 3.8 mmol/L (3.4-5.0); Sodium 135 mmol/L (137-145)
[2022-06-26 19:46] LABS: INR 1.1; Partial Thromboplastin Time 29.2 SECONDS (22.3-36.8); Prothrombin Time 14.2 Seconds (11.1-14.7)
--- NOTE | 2022-06-26 20:31 | PC.NURSE ---
Patient accepted at [facility]. On waitlist for bed.
[2022-06-27] VITALS (22 sets, daily range): BP systolic 113–133; BP diastolic 70–99; PULSE 63–102; RESP 12–24
== END 2022-06-27 06:58 | disposition short-term general hospital (02) ==
PROVIDERS: Physician Assistant; Emergency Provider Emergency Medicine
DX: I61.1 Nontraumatic intracerebral hemorrhage in hemisphere, cortical (principal); M47.812 Spondylosis without myelopathy or radiculopathy, cervical region
CPT/HCPCS: 36415; 70450; 72125; 80048; 81025; 85025; 85610; 85730; 96361; 96365; 96374; 96375; 99285; J0131; J1200; J2765; J7030

== ENCOUNTER 2024-03-14 19:01 | Emergency (ER) | payer OTHER, SELFPAY ==
[2024-03-14 19:03] VITALS: BP 169/106; PULSE 95; RESP 18; TEMP 36.4; O2SAT 100
--- NOTE | 2024-03-14 21:32 | PC.NURSE ---
pt called back for room with no answer. pt not to be found in bathroom or outside.
== END 2024-03-14 21:30 | disposition left against medical advice (07) ==
DX: R20.0 Anesthesia of skin (principal)
CPT/HCPCS: 99199

== ENCOUNTER 2024-03-16 21:29 | Emergency (ER) | payer OTHER, SELFPAY ==
--- NOTE | ~2024-03-16 | XR_ITS ---
EXAMINATION: XR chest 2V Exam Date/Time: 03/16/2024 22:12 CDT HISTORY: rt sided chest chest pain x1 day Comparison: 07/12/2021 822. RESULT: Lines, tubes, and devices: None. Lungs and pleura: Minimal streaky opacities in the right lung base. Cardiomediastinal silhouette: Stable. Other: No acute osseous or upper abdominal finding. IMPRESSION: Mild right basilar atelectasis, otherwise no acute cardiopulmonary process. Reviewed, dictated and finalized at location K.
--- NOTE | ~2024-03-16 | CT_ITS ---
EXAMINATION: CTA chest PE protocol DATE: 03/16/2024 22:56 INDICATION: Shortness of breath pleuritic chest pain evaluate TECHNIQUE: Computed tomography angiography (CTA) of the chest was performed with 100 mL Omnipaque-350 intravenous contrast timed to evaluate the pulmonary arteries. Coronal maximum intensity projection 3D-reconstructions were created by the technologist. The dose-length product (DLP) was 149.19 mGy-cm. Automated exposure control and iterative reconstruction technique were employed. COMPARISON: None. FINDINGS: Lung parenchyma and airways: Clear. Pleura: Unremarkable. Thoracic inlet, axillae and chest wall: Unremarkable. Thoracic aorta: No significant dilation. No dissection. Mediastinum: Normal. Heart and pericardium: Normal. Coronary artery calcifications: Absent. Upper abdomen: No significant finding. Bones: No acute osseous finding. Pulmonary arteries: Study quality: Adequate. No pulmonary emboli detected. IMPRESSION: No CT evidence of acute pulmonary embolus. No acute process detected in the chest. Reviewed, dictated and finalized at location K.
[2024-03-16 21:31] VITALS: BP 177/126; PULSE 99; RESP 20; TEMP 37.1; O2SAT 100
[2024-03-16 21:38] VITALS: PULSE 99
[2024-03-16 21:39] VITALS: O2SAT 100
[2024-03-16 22:06] LABS: Basophils Percent Auto 0.5 % (0.2-1.2); Eosinophils Absolute Auto 0.1 K/mm3 (0-0.3); Eosinophils Percent Auto 1.2 % (0-4.4); Hematocrit 41.3 % (37.0-47.0); Hemoglobin 13.7 g/dL (12.0-15.0); Immature Granulocyte Absolute 0.02 K/mm3 (0.00-0.031); Immature Granulocyte Percent A 0.3 % (0-0.5); Lymphocytes Absolute Auto 1.62 K/mm3 (0.9-3.2); Lymphocytes Percent Auto 20.7 % (18.3-44.2); Mean Corpuscular HGB Conc 33.2 g/dl (32-36); Mean Corpuscular Hemoglobin 29.3 pg (26-34); Mean Corpuscular Volume 88.2 fl (80-100); Mean Platelet Volume 11.3 fl (7.4-10.4); Monocytes Percent Auto 12.7 % (2.6-8.5); Neutrophils Absolute Auto 5.1 K/mm3 (1.3-6.7); Neutrophils Percent Auto 64.6 % (45.5-73.1); Platelet Count Result 179 k/mm3 (150-375); Red Blood Count 4.68 M/mm3 (4.2-5.4); Red Cell Distribution Width 13.4 % (11.5-14.5); White Blood Count 7.8 K/mm3 (4.5-10.0)
[2024-03-16 22:16] LABS: Prothrombin Time 13.7 Seconds (11.1-14.7)
[2024-03-16 22:17] LABS: Partial Thromboplastin Time 29.6 Seconds (22.3-36.8)
[2024-03-16 22:19] LABS: Alanine Aminotransferase 12 U/L (6-35); Albumin Level 4.1 g/dL (3.5-5.1); Alkaline Phosphatase 45 U/L (38-126); Anion Gap 7 mmol/L (4-12); Aspartate Amino Transferase 20 U/L (14-36); Bilirubin,Total 0.2 mg/dL (0.2-1.3); Blood Urea Nitrogen 15 mg/dL (7-17); Calcium 9.1 mg/dL (8.4-10.2); Carbon Dioxide 29 mmol/L (22-30); Chloride 99 mmol/L (98-107); Estimated CRCL calculation 65 ml/min; Estimated Glomerular Filt Rate > 60; Glucose 86 mg/dL (65-110); Lipase 80 U/L (23-300); Potassium 3.8 mmol/L (3.4-5.0); Sodium 135 mmol/L (137-145)
[2024-03-16 22:30] LABS: Troponin I < 0.012 ng/mL (0.000-0.034)
[2024-03-16] MEDS: ASPIRIN 81 MG CHEWABLE TABLET 324 MG PO (22:34)
[2024-03-16 22:56] LABS: BEDSIDEPREGUCG Negative
[2024-03-16 23:16] LABS: Add Urine Microscopic? YES; Appearance Urine Clear (Clear); Bacteria Urine None Seen /hpf; Bilirubin Urine Negative (Negative); Blood Urine Negative (Negative); Color Urine Yellow (Yellow); Glucose Urine UA Negative (Negative); Ketones Urine Negative (Negative); Leukocyte Esterase Ur Trace LEU/UL (Negative); Nitrate Urine Negative (Negative); Non Pathogenic Casts 0-2; Protein Urine Negative (Negative); RBC Urine 0-2 /hpf (0-2); Specific Grav Ur 1.014 (1.001-1.035); Squamous Epithelial Cell Urine None Seen /hpf (Few); WBC Urine 0-5 /hpf (0-3); pH Urine 6.5 (5.0-9.0)
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
[2024-03-16 23:27] LABS: Barbiturate Screen Urine Negative (Negative); Benzodiazepines Screen Urine Negative (Negative)
[2024-03-16 23:28] LABS: Cannabinoid Screen Urine Negative (Negative); Cocaine Screen Urine Negative (Negative); Methadone Screen Urine Negative (Negative); Opiate Screen Urine Negative (Negative); Phencyclidine Screen Urine Negative (Negative)
[2024-03-16 23:30] LABS: NT Pro B Type Natriuretic Pept 167 pg/mL (19.9-100)
[2024-03-17 00:05] LABS: Amphetamine Screen Urine Positive (Negative)
[2024-03-17] MEDS: Please add drug allergy info to patient profile. 1 EACH XX (00:21)
[2024-03-17 00:39] VITALS: BP 132/97; PULSE 87; RESP 18; O2SAT 100
--- NOTE | 2024-03-17 00:42 | ECG_ITS ---
Test Date: 2024-03-17 01:04:05 Measurements Intervals [place] Rate: 85 P: 80 NC: 158 QRS: 67 QRSD: 84 T: 71 QT: 363 QTc: 433 Interpretive Statements SINUS RHYTHM WITH OCCASIONAL ECTOPIC PREMATURE COMPLEXES ABNORMAL ECG Compared to ECG 03/16/2024 21:46:56 PVCS ARE NOW SEEN Electronically Signed On 03-17-2024 12:50:05 CDT by Preston Escalante M.D.
[2024-03-17 01:08] LABS: Troponin I < 0.012 ng/mL (0.000-0.034)
--- NOTE | 2024-03-17 21:46 | ECG_ITS ---
Test Date: 2024-03-16 21:46:56 Measurements Intervals [place] Rate: 85 P: 77 AR: 158 QRS: 68 QRSD: 85 T: 69 QT: 343 QTc: 408 Interpretive Statements SINUS RHYTHM NORMAL ELECTROCARDIOGRAM No previous ECG available for comparison Electronically Signed On 03-17-2024 12:48:14 CDT by Preston Escalante M.D.
== END 2024-03-17 02:25 | disposition home or self-care (01) ==
PROVIDERS: Emergency Provider Emergency Medicine
DX: R07.89 Other chest pain (principal); I49.3 Ventricular premature depolarization
CPT/HCPCS: 36415; 71046; 71275; 80053; 80307; 81001; 81025; 83690; 83880; 84484; 85025; 85610; 85730; 93005; 99284; A9270; Q9967

== ENCOUNTER 2024-05-18 17:29 | Emergency (ER) | payer OTHER, SELFPAY ==
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
[2024-05-18 17:48] VITALS: BP 166/100; PULSE 107; RESP 20; TEMP 37.3; O2SAT 100
[2024-05-18] MEDS: AZITHROMYCIN 250 MG TABLET 1000 MG PO (18:05)
[2024-05-18] MEDS: NEOMYCIN/POLYMYXIN/HYDROCORT 7.5 ML EYE DROPS (*BKC) 1 DROP EACH EYE (18:05)
[2024-05-18] MEDS: cefTRIAXone 1 GM, LIDOCAINE HCL 1% LOCAL INJ 2.1 ML IM (18:06)
[2024-05-18 18:24] LABS: HIV 1 P24 AG Negative (Negative); HIV 1/2 AB Negative (Negative)
[2024-05-18 18:33] VITALS: BP 160/104; PULSE 88; RESP 20; TEMP 37.1; O2SAT 100
[2024-05-19 08:36] LABS: Chlamydia trachomatis NOT DETECTED (NOT DETECTE); Neisseria gonorrhoeae PCR NOT DETECTED (NOT DETECTE)
== END 2024-05-18 18:34 | disposition home or self-care (01) ==
LOC: CHSED 17:48
PROVIDERS: Emergency Provider Emergency Medicine
DX: H10.89 Other conjunctivitis (principal); Z11.3 Encounter for screening for infections with a predominantly sexual mode of transmission; Z20.2 Contact with and (suspected) exposure to infections with a predominantly sexual mode of transmission
CPT/HCPCS: 36415; 86592; 87491; 87591; 87806; 96372; 99283; A9270; J0696; J2003

== ENCOUNTER 2024-06-05 03:33 | Emergency (ER) | payer OTHER, SELFPAY ==
--- NOTE | ~2024-06-05 | CT_ITS ---
Non-contrast Head CT History: History of cavernous sinus thrombosis COMPARISON: 06/26/2022 Technique: Axial non-contrast imaging of the brain was performed. Dose reduction technique was used on this scan by utilizing automated exposure control and iterative reconstruction technique. The dose -length product (DLP) was 605.33 mGy-cm. Findings: Stable 6 mm hyperdensity in the posterior right parietal lobe (axial image 40), possibly sm all cavernoma. No other parenchymal abnormality seen. No acute abnormality evident. The ventricles an d subarachnoid spaces are normal in size. The calvarium appears normal. The visualized paranasal si nuses and mastoid air cells are clear. Impression: No acute abnormality evident. Stable 6 mm hyperdensity right parietal lobe, possibly small cavernoma. Reviewed, dictated and finalized at [facility]. DENT RESPONSE SPECIALIST Impression: No acute abnormality evident. Stable 6 mm hyperdensity right parietal lobe, possibly small cavernoma.
[2024-06-05 03:41] VITALS: BP 144/120; PULSE 98; RESP 17; TEMP 36.6; O2SAT 100
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
[2024-06-05] MEDS: ACETAMINOPHEN 500 MG TABLET 1000 MG PO (04:09)
[2024-06-05] MEDS: SODIUM CHLORIDE 0.9% IV 1,000 ML 999 ML IV CONT (04:12)
[2024-06-05] MEDS: diphenhydrAMINE HCl INJ 50 MG/ML VIAL 25 MG IV PUSH (04:14)
[2024-06-05] MEDS: PROCHLORPERAZINE EDISYLATE 10 MG/2 ML VIAL 5 MG IV PUSH (04:15)
[2024-06-05 05:44] VITALS: BP 127/60; PULSE 85; RESP 16; TEMP 36.4; O2SAT 100
[2024-06-05] MEDS: dexAMETHasone SOD PHOS INJ 10 MG/ML 1 ML VIAL IV PUSH (05:46)
== END 2024-06-05 06:11 | disposition home or self-care (01) ==
PROVIDERS: Emergency Provider Student in an Organized Health Care Education/Training Program
DX: R51.9 Headache, unspecified (principal); Q28.3 Other malformations of cerebral vessels; I10 Essential (primary) hypertension
CPT/HCPCS: 70450; 96361; 96374; 96375; 99284; A9270; J0780; J1100; J1200; J7030

== ENCOUNTER 2025-06-30 15:51 | Emergency (ER) | payer OTHER, SELFPAY ==
--- OUTSIDE RECORDS SUMMARY | 2025-06-29 01:29 | XMS_ITS | Encounter Summary ---
Author Organization [facility] Address [address] [place] [id number] Phone Care Team Providers Care [employer] Sergeant Name Role Phone Clara Shepherd APRN, YOLIS Primary Care Pro vider Reason for Visit * Reason Comments Chest Pain High Blood Pressure Encounter Details Date Type Department Care Team (Late st Contact Info) Description 06/29/2025 1:29 AM DIGITAL ASSOCIATE - 06/29/2025 3:23 AM DIGITAL ASSOCIATE Emergency [facility] Emergency [address] [place] [address] Melvin Bravo MD [address] [place] [address] Primary hypertension Discharge Disposition: Discharged to home or Selfcare Social History Tobacco Use Types Packs/Day Years Used Date Smoking Tobacco: Every Day Cigarettes Tobacco Cessation:Ready to Q uit: Not Asked; Counseling Given: Not Answered Comments No Sex and Gender Information Value Date Recorded Sex Assigned at Not on file Legal Sex Female 1:28 AM DIGITAL ASSOCIATE Gender Identity Not on file Sexual Orientation Not on file documented as of this encounter Last Filed Vital Signs Vital Sign Reading Time Taken Comments Blood Pressure 142/93 06/29/2025 3:00 AM DIGITAL ASSOCIATE Pulse 97 06/29/2025 3:00 AM DIGITAL ASSOCIATE Temperature 35.9 C (96.7 F) 06/29/2025 1:34 AM DIGITAL ASSOCIATE Respiratory Rate 20 06/29/2025 3:00 AM DIGITAL ASSOCIATE Oxygen Saturation 100% 06/29/2025 3:00 AM DIGITAL ASSOCIATE Inhaled Oxygen Concentration - - Weight 56.7 kg (125 lb) 06/29/2025 1:37 AM DIGITAL ASSOCIATE Height 167.6 cm (5' 6) 06/29/2025 1:37 AM DIGITAL ASSOCIATE Body Mass Index 20.18 06/29/2025 1:37 AM DIGITAL ASSOCIATE documented in this encounter Functional Status * Question Answer Date of Assessment Author Best Eye Response 4-->(E4) spontaneous 06/29/2025 1:49 AM DIGITAL ASSOCIATE Miladis Aparicio RN Best Verbal Response 5-->(V5) oriented 06/29/2025 1:49 AM DIGITAL ASSOCIATE Miladis Aparicio RN Best Motor Response 6-->(M6) obeys commands 06/29/2025 1:49 AM DIGITAL ASSOCIATE Miladis Aparicio RN [place] Coma Scale Score 15 06/29/2025 1:49 AM Miladis Masterson RN * Question Answer Date of Assessment Author Pain Description intermittent;sharp 06/29/2025 3:22 AM Bre Kenney RN * [place] Fall Risk Question Answer Date of Assessment Author History of Falling, Immediat e or Within 3 Months 0 06/29/2025 1:36 AM Bre Kenney RN Secondary Diagnosis 0 06/29/2025 1:36 AM CS T Bre Ghosh RN Ambulatory Aid 0 06/29/2025 1:36 AM Bre Wilks RN Intravenous Therapy/Heparin Lock 20 06/29/20 25 1:36 AM Bre Kenney RN Gait/Transferring 0 06/29/2025 1:36 AM Bre Kenney RN Mental Status 0 06/29/2025 1:36 AM Bre Dennis RN [place] Fall Risk Score 20 06/29/2025 1:36 AM Bre Kenney RN * Question Answer Date of Assessment Author SpO2 100 06/29/2025 3:00 AM Bre Dennis RN O2 Device None (Room air) 06/29/2025 1:34 AM DIGITAL ASSOCIATE Bre Houston RN * Question Answer Date of Assessment Author BP 142/93 06/29/2025 3:00 AM Bre Spence RN Pulse 97 06/29/2025 3:00 AM Bre Spence RN Resp 20 06/29/2025 3:00 AM Bre Spence RN Heart Rate (Monitor) 98 06/29/2025 3:00 AM Bre Salmon RN * Safety Factors Answer Date of Assessment Author bed in low position;call light in reach 06/29/20 25 1:36 AM Bre Kenney RN * Question Answer Date of Assessment Author Chest Pain Character sharp 06/29/2025 1:37 AM Miladis Rudd RN (0-10) Chest Pain Severity Rating 6 06/29/2025 1:37 AM Miladis Masterson RN Chest Pain Location anterior chest, left 06/29/2025 1: 37 AM Miladis Masterson RN Chest Pain Intervention cardiac biomarke rs drawn;cardiac monitoring continued;alarm security or surveillance monitor placed;12-lead ECG obtained;activity minimized 06/29/2025 1:37 AM Miladis Masterson RN * Question Answer Date of Assessment Author Temp 96.7 06/29/2025 1:34 AM Bre Spence RN documented as of this encounter Mental Status * Question Answer Entry Date Author Best Eye Response 4-->(E4) spontaneous 1:49 AM Miladis Masterson RN Best Verbal Response 5-->(V5) oriented 1:49 AM Miladis Masterson RN Best Motor Response 6-->(M6) obeys commands 11/2024 1:49 AM Miladis Masterson RN [place] Coma Scale Score 15 06/29/2025 1:49 AM Miladis Masterson RN * Question Answer Entry Date Author Pain Description intermittent;sharp 06/29/2025 3:22 AM Bre Kenney RN * Question Answer Entry Date Author SpO2 100 06/29/2025 3:00 AM Bre Spence RN O2 Device None (Room air) 06/29/2025 1:34 AM Bre Melara Ra, RN * Question Answer Entry Date Author BP 142/93 06/29/2025 3:00 AM Bre Spence RN Pulse 97 06/29/2025 3:00 AM Bre Spence RN * Safety Factors Answer Entry Date Author bed in low position;call light in reach 06/29/20 25 1:36 AM Bre Kenney RN * Question Answer Entry Date Author Chest Pain Character sharp 06/29/2025 1:37 AM Miladis Masterson RN (0-10) Chest Pain Severity Rating 6 06/29/2025 1:37 AM Miladis Masterson RN Chest Pain Location anterior chest, left 025 1:37 AM Miladis Masterson RN Chest Pain Intervention cardiac biomarke rs drawn;cardiac monitoring continued;alarm security or surveillance monitor placed;12-lead ECG obtained;activity minimized 06/29/2025 1:37 AM Miladis Masterson RN * Question Answer Entry Date Author Temp 96.7 06/29/2025 1:34 AM Bre Spence RN documented in this encounter Discharge Instructions * Discharge Instructions* Melvin Bravo MD - 06/29/2025 3:13 AM DIGITAL ASSOCIATE As we discussed, your work-up today did not reveal a heart attack. Nevertheless, you will still require very close follow-up for your symptoms, as you may require further testing to ensure your heartis okay. It is very important that you follow-up with your primary care doctor or your cardiologistwithin the next 3 days. Your doctors may order you a stress test to better assess your heart. Please come back immediately if you have any worsening chest pain, shortness of breath, vomiting, sweating, fever, weakness, new or worsening symptoms, or anything else concerning to you. Please start the blood pressure medication prescribed by the other hospital and follow-up with yourdoctor for a recheck of your blood pressure and further medication titration. Return if any new or worsening symptoms. TAL ASSOCIATE documented in this encounter ED Notes * Gabriela Phillips RN - 06/29/2025 2:27 AM CST Family member of patient wanted to make ER team aware that she has a cavernous malformation in caseit could be related to her current symptoms. TAL ASSOCIATE * Miladis Aparicio RN - 06/29/2025 2:06 AM CST Pt medicated per provider orders. Pt educated on intended effects and side effects of medication and verbalized understanding, able to provide teach back of education. TAL ASSOCIATE * Bre Ghosh RN - 06/29/2025 1:38 AM CST Pt ambulatory to triage with C/O left sided CP and High BP. Pt states that she was seen for this 2 nights ago at [facility] but has not followed up with her PCP. Pt is hypertensive in triage all other VSS at this time. ERP at bedside. Labwork and EKG being obtained at this time. TAL ASSOCIATE * Melvin Bravo MD - 06/29/2025 1:32 AM CST Chief Complaint Patient presents with Chest Pain High Blood Pressure This is a 40-year-old female with a history of cigarette smoking who comes in due to chest pain. Patient states that for the past 3 days she has had left- sided chest discomfort which is described as a paresthesia like sensation. Nothing in particular makes it better or worse. Was seen recently at an outside hospital for high blood pressure but has not yet started the medication prescribed. Has not yet followed up with her primary doctor. She denies any shortness of breath but does note a slightcough. No leg pain or leg swelling. No focal weakness or numbness. She denies drugs or alcohol. No medications prior to arrival. Current Medications[1] Allergies[2] History reviewed. No pertinent past medical history. Past Surgical History[3] Social History Socioeconomic History Marital status: Spouse name: Not on file Number of children: Not on file Years of education: Not on file Highest education level: Not on file Occupational History Not on file Tobacco Use Smoking status: Every Day Types: Cigarettes Smokeless tobacco: Not on file Substance and Sexual Activity Alcohol use: Not on file Drug use: Not on file Sexual activity: Not on file Other Topics Concern Not on file Social History Narrative Not on file Social Drivers of Health Financial Resource Needs: Not on file Food Insecurity Needs: No Food Insecurity (06/27/2022) Received from [facility] Vital Sign Within the past 12 months, you worried that your food would run out before you got the money to buymore.: Never true Within the past 12 months, the food you bought just didn't last and you didn't have money to get more.: Never true Transportation Needs: Not on file Physical Activity: Not on file Stress: Not on file Social Integration: Not on file Personal Safety: Not on file Housing Stability: Not on file BP (!) 148/92 Pulse 102 Temp 96.7 ??F (35.9 ??C) (Tympanic) Resp 20 Ht 5' 6 (1.676 m) Wt125 lb (56.7 kg) LMP 06/25/2025 (Approximate) SpO2 100% BMI 20.18 kg/m?? Review of Systems Physical Exam Vitals and nursing note reviewed. Constitutional: Comments: Well-appearing young female in no acute distress. HENT: Head: Normocephalic and atraumatic. Eyes: Extraocular Movements: Extraocular movements intact. Pupils: Pupils are equal, round, and reactive to light. Cardiovascular: Rate and Rhythm: Normal rate and regular rhythm. Heart sounds: Normal heart sounds. Pulmonary: Effort: Pulmonary effort is normal. Breath sounds: Normal breath sounds. Chest: Chest wall: No tenderness. Abdominal: General: Bowel sounds are normal. Palpations: Abdomen is soft. Musculoskeletal: General: Normal range of motion. Cervical back: Normal range of motion and neck supple. Right lower leg: No tenderness. No edema. Left lower leg: No tenderness. No edema. Skin: General: Skin is warm. Capillary Refill: Capillary refill takes less than 2 seconds. Neurological: General: No focal deficit present. Mental Status: She is oriented to person, place, and time. Cranial Nerves: No cranial nerve deficit. Motor: No weakness. Psychiatric: Mood and Affect: Mood normal. Procedures EKG/rhythm strip at 1:37 AM: Normal sinus rhythm, rate of 94, no ST segment changes per my read. Recent Results (from the past 24 hours) Human Chorionic Gonadotropin Scrn Serum Collection Time: 06/29/25 1:51 AM Result Value Ref Range PREG-HCG Negative Negative CMP (Comprehensive Metabolic Panel) Collection Time: 06/29/25 1:51 AM Result Value Ref Range SODIUM 142 136 - 145 mmol/L POTASSIUM 4.0 3.5 - 5.1 mmol/L CHLORIDE 104 98 - 107 mmol/L CO2, VENOUS 28 22 - 30 mmol/L ANION GAP 14.0 <18.0 mmol/L GLUCOSE 93 70 - 99 mg/dL BUN 14 5 - 18 mg/dL CREATININE, BLOOD 1.11 (H) 0.60 - 1.00 mg/dL BUN/CREATININE RATIO 13 12 - 20 ratio TOTAL PROTEIN 7.1 6.0 - 8.0 g/dL ALBUMIN 4.5 3.5 - 5.0 g/dL A/G RATIO 1.7 1.0 - 2.2 CALCIUM 9.3 8.7 - 10.5 mg/dL T BILI 0.2 0.2 - 1.2 mg/dL SGOT (AST) 26 <43 U/L SGPT (ALT) 22 <56 U/L ALKALINE PHOSPHATASE 58 40 - 150 U/L GFR, ESTIMATED >60 >=60 GFR, EST. >60 >=60 GFR, EST. NONAFRICAN 54 (L) >=60 TROPONIN I, HIGH SENSITIVITY (HSTRP) Collection Time: 06/29/25 1:51 AM Result Value Ref Range TROPONIN I, HIGH SENSITIVITY- CABRERA <2.7 <=14.0 ng/L CBC with Auto Differential Collection Time: 06/29/25 1:51 AM Result Value Ref Range WBC 7.85 4.00 - 12.00 10(3)/mcL RBC 5.19 3.80 - 5.30 10(6)/mcL HEMOGLOBIN (HGB) 15.2 12.0 - 15.8 g/dL HEMATOCRIT (HCT) 46.2 36.0 - 47.0 % MCV 89.0 82.0 - 96.0 fL MCH 29.3 26.0 - 34.0 pg MCHC 32.9 31.0 - 36.0 g/dL PLATELET COUNT 203 140 - 440 10(3)/mcL RDW 12.9 11.8 - 15.5 % MPV 10.9 9.7 - 12.4 fL NEUTROPHILS 59.1 47.0 - 73.0 % LYMPHOCYTES 27.5 18.0 - 42.0 % MONOCYTES 10.1 4.0 - 12.0 % EOSINOPHILS 2.5 0.0 - 5.0 % BASOPHILS 0.5 0.0 - 1.0 % IMMATURE GRANULOCYTE 0.3 0.0 - 0.4 % ABSOLUTE NEUTROPHILS 4.64 1.60 - 7.70 10(3)/mcL ABSOLUTE LYMPHOCYTES 2.16 1.30 - 3.20 10(3)/mcL ABSOLUTE MONOCYTES 0.79 0.20 - 1.00 10(3)/mcL ABSOLUTE EOSINOPHIL 0.20 0.00 - 0.40 10(3)/mcL ABSOLUTE BASOPHILS 0.04 0.00 - 0.10 10(3)/mcL ABSOLUTE IMMATURE GRANULOCYTE 0.02 0.00 - 0.03 10 (3) mcL. NRBC PER 100 WBC 0 Imaging Results XR CHEST SINGLE VIEW PORTABLE (In process) Result time 06/29/25 01:53:05 Medical Decision Making This is a 40-year-old female, smoker, comes in with chest pain and elevated blood pressures. Differential diagnoses to consider in this patient include: cardiac (ischemia, valve disease, arrhythmia) vs pulmonary (infectious process, pulmonary embolus) vs gastrointestinal (reflux) vs musculoskeletalvs neuropathic vs other process. Given her elevated blood pressure and her smoking status we will plan to check an EKG and troponin to exclude any signs of ACS. Will check a chest x-ray to rule out pneumonia and pneumothorax. Will check blood work to rule out any signs of endorgan damage that couldsuggest hypertensive emergency. She has no focal deficits to suggest acute stroke. No signs of volume overload. No tearing pain rating to the back to suggest aortic syndrome. No confusion or headaches or visual deficits to suggest an intracranial bleed or hypertensive encephalopathy. Will give antihypertensive medication while we await her workup and closely reassess. She is PERC negative for PE. Clinical Impression 1. Chest pain, unspecified type 2. Primary hypertension Disposition: Discharge ED Course as of 06/29/25315Jun 29, [id number] Patient reassessed at this time and appears comfortable and in no distress. Her blood pressureis much improved. Her labs are grossly unremarkable with no signs of endorgan damage that would suggest hypertensive emergency. Her troponin is undetectable and given multiple days of symptoms and a low risk patient there is no indication for further trending. Her chest x-ray on my review does not show any obvious infiltrates or pneumothorax or other obvious pathology. Formal radiology read will follow in the morning. Will plan to discharge at this time. I recommended that she start the antihypertensive medication prescribed by the outside hospital and follow-up with her primary doctor for recheck of her blood pressure and medication titration. I recommended that she return if any new or worsening symptoms. Note: Portions of this chart may have been completed with voice recognition software and may contain slight errors unrecognizable by the users. This would in no way affect the patient's care and is meant to improve length and quality of medical decision making and history taking. [1] No current facility-administered medications for this encounter. No current outpatient medications on file. [2] Not on File [3] No past surgical history on file. TAL ASSOCIATE documented in this encounter Plan of Treatment Not on file documented as of this encounter Procedures Procedure Name Priority Date/Time Associated Diagnosis Comments XR CHEST SINGLE VIEW PORTABLE STAT 06/29/2025 2:40 AM DIGITAL ASSOCIATE TROPONIN I, HIGH SENSITIVITY (HSTRP) STAT 06/29/2025 1:51 AM DIGITAL ASSOCIATE CBC WITH AUTO DIFFERENTIAL STAT 06/29/2025 1:51 AM DIGITAL ASSOCIATE APTT (PTT) STAT 06/29/2025 1:51 AM DIGITAL ASSOCIATE PROTIME (PT) (PROTHROMBIN TIME) STAT 06/29/2025 1:51 AM DIGITAL ASSOCIATE HUMAN CHORIONIC GONADOTROPIN SCRN SERUM STAT 06/29/2025 1:51 AM DIGITAL ASSOCIATE CMP (COMPREHENSIVE METABOLIC PANEL) STAT 06/29/2025 1:51 AM DIGITAL ASSOCIATE COMPLETE BLOOD COUNT (CBC) WITH DIFF STAT 06/29/2025 1:51 AM DIGITAL ASSOCIATE EKG 12 LEAD STAT 06/29/2025 1:37 AM DIGITAL ASSOCIATE EKG SCAN 06/29/2025 12:00 AM DIGITAL ASSOCIATE documented in this encounter Results * XR CHEST SINGLE VIEW PORTABLE (06/29/2025 2:40 AM DIGITAL ASSOCIATE) Anatomical Region Laterality Modality Chest N/A Computed Radiogr aphy 06/29/2025 2:40 AM DIGITAL ASSOCIATE Impressions 06/29/2025 5:53 AM DIGITAL ASSOCIATE IMPRESSION: No acute cardiopulmonary findings. Narrative 06/29/2025 5:53 AM DIGITAL ASSOCIATE DICTATING PHYSICIAN: Harley Badillo M.D., [facility] Exam: XR CHEST SINGLE VIEW PORTABLE 06/29/2025 2:40 AM Patient : 1985 Age: 40 years Gender: Female Number of Images: 1 view Indication: left sided chest pain and high BP x 3 days. Comparison: None. FINDINGS: EKG leads. The lungs are clear. No pleural effusion or pneumothorax is seen. The cardiac silhouette is unremarkable for size. The aorta is unremarkable. Procedure Note Harley Motley MD - 06/29/2025 DICTATING PHYSICIAN: Harley Badillo M.D., [facility] Exam: XR CHEST SINGLE VIEW PORTABLE 06/29/2025 2:40 AM Patient : 1985 Age: 40 years Gender: Female Number of Images: 1 view Indication: left sided chest pain and high BP x 3 days. Comparison: None. FINDINGS: EKG leads. The lungs are clear. No pleural effusion or pneumothorax is seen. The cardiac silhouette is unremarkable for size. The aorta is unremarkable. IMPRESSION: No acute cardiopulmonary findings. us Melvin Bravo MD IMG DIAGNOSTIC ORDERABLES Final Result * PT / INR (06/29/2025 1:51 AM DIGITAL ASSOCIATE) PROTIME-PATIENT 12.6 11.6 - 14.8 sec 06/29/2025 3:26 AM DIGITAL ASSOCIATE [facility] INR 0.9 0.9 - 1.2 06/29/2025 3:26 AM DIGITAL ASSOCIATE [facility] Comment: Therapeutic Ranges INR = 2.0-3.0: Venous thromb, atrial fib, pul embolism, tissue heart valve, ami. INR = 2.5-3.5: Mechanical heart valve Critical value for INR is >/= 4.5 Blood Venipuncture / Unknown 06/29/2025 1:51 AM DIGITAL ASSOCIATE 06/29/2025 1:57 AM DIGITAL ASSOCIATE Melvin Bravo MD HEMATOLOGY ORDERABLES Fin al Result Performing Organization Address [facility] de Phone Number [facility] [address] [place] [address] * PTT (06/29/2025 1:51 AM DIGITAL ASSOCIATE) PTT 30 24 - 36 sec 06/29/2025 3:26 AM DIGITAL ASSOCIATE [facility] Blood Venipuncture / Unknown 06/29/2025 1:51 AM DIGITAL ASSOCIATE 06/29/2025 1:57 AM DIGITAL ASSOCIATE Narrative [facility] - 06/29/2025 3:26 AM DIGITAL ASSOCIATE Therapeutic range for unfractionated heparin at 0.3-0.7 U/mL is an aPTT value in the range of 71-100 seconds. Critical value for the PTT test is >= 122 seconds. Melvin Bravo MD HEMATOLOGY ORDERABLES Fin al Result Performing Organization Address [facility] de Phone Number [facility] [address] [place] [address] * CBC with Auto Differential (06/29/2025 1:51 AM DIGITAL ASSOCIATE) WBC 7.85 4.00 - 12.00 10(3)/mcL 06/29/2025 1:59 AM DIGITAL ASSOCIATE [facility] RBC 5.19 3.80 - 5.30 10(6)/mcL 06/29/2025 1:59 AM DIGITAL ASSOCIATE [facility] HEMOGLOBIN (HGB) 15.2 12.0 - 15.8 g/dL 06/29/2025 1:59 AM [facility] HEMATOCRIT (HCT) 46.2 36.0 - 47.0 % 06/29/2025 1:59 AM [facility] MCV 89.0 82.0 - 96.0 fL 06/29/2025 1:59 AM [facility] MCH 29.3 26.0 - 34.0 pg 06/29/2025 1:59 AM [facility] MCHC 32.9 31.0 - 36.0 g/dL 06/29/2025 1:59 AM [facility] PLATELET COUNT 203 140 - 440 10(3)/mcL 06/29/2025 1:59 AM [facility] RDW 12.9 11.8 - 15.5 % 06/29/2025 1:59 AM [facility] MPV 10.9 9.7 - 12.4 fL 06/29/2025 1:59 AM [facility] NEUTROPHILS 59.1 47.0 - 73.0 % 06/29/2025 1:59 AM [facility] LYMPHOCYTES 27.5 18.0 - 42.0 % 06/29/2025 1:59 AM [facility] MONOCYTES 10.1 4.0 - 12.0 % 06/29/2025 1:59 AM [facility] EOSINOPHILS 2.5 0.0 - 5.0 % 06/29/2025 1:59 AM [facility] BASOPHILS 0.5 0.0 - 1.0 % 06/29/2025 1:59 AM [facility] IMMATURE GRANULOCYTE 0.3 0.0 - 0.4 % 06/29/2025 1:59 AM [facility] ABSOLUTE NEUTROPHILS 4.64 1.60 - 7.70 10(3)/mcL 06/29/2025 1:59 AM [facility] ABSOLUTE LYMPHOCYTES 2.16 1.30 - 3.20 10(3)/mcL 06/29/2025 1:59 AM DIGITAL ASSOCIATE [facility] ABSOLUTE MONOCYTES 0.79 0.20 - 1.00 10(3)/mcL 06/29/2025 1:59 AM DIGITAL ASSOCIATE [facility] ABSOLUTE EOSINOPHIL 0.20 0.00 - 0.40 10(3)/mcL 06/29/2025 1:59 AM DIGITAL ASSOCIATE [facility] ABSOLUTE BASOPHILS 0.04 0.00 - 0.10 10(3)/[facility] 06/29/2025 1:59 AM DIGITAL ASSOCIATE [facility] ABSOLUTE IMMATURE GRANULOCYTE 0.02 0.00 - 0.03 10 (3) mcL. 06/29/2025 1:59 AM DIGITAL ASSOCIATE [facility] NRBC PER 100 WBC 0 06/29/20 1:59 AM DIGITAL ASSOCIATE [facility] Blood Venipuncture / Unknown 06/29/2025 1:51 AM DIGITAL ASSOCIATE 06/29/2025 1:57 AM DIGITAL ASSOCIATE Melvin Bravo MD HEMATOLOGY ORDERABLES Fin al Result Performing Organization Address City/[facility]/ZIP Co de Phone Number [facility] [address] [place] [address] * TROPONIN I, HIGH SENSITIVITY (HSTRP) (06/29/2025 1:51 AM DIGITAL ASSOCIATE) [facility] TROPONIN I, HIGH SENSITIVITY- CABRERA <2.7 <=14.0 ng/L 06/29/2025 2:23 AM DIGITAL ASSOCIATE [facility] Comment: High-sensitivity troponin I results are reported in ng/L making the result appear to be 1,000 times higher than the contemporary troponin I value which is reported in ng/ml. Results from [facility]. Blood Venipuncture / Unknown 06/29/2025 1:51 AM DIGITAL ASSOCIATE 06/29/2025 1:57 AM DIGITAL ASSOCIATE Melvin Bravo MD CHEMISTRY ORDERABLES Emely l Result [facility] [address] [place] [address] * (ABNORMAL) CMP (Comprehensive Metabolic Panel) (06/29/2025 1:51 AM DIGITAL ASSOCIATE) SODIUM 142 136 - 145 mmol/L 06/29/2025 2:18 AM [facility] POTASSIUM 4.0 3.5 - 5.1 mmol/L 06/29/2025 2:18 AM [facility] CHLORIDE 104 98 - 107 mmol/L 06/29/2025 2:18 AM [facility] CO2, VENOUS 28 22 - 30 mmol/L 06/29/2025 2:18 AM [facility] ANION GAP 14.0 <18.0 mmol/L 06/29/2025 2:18 AM [facility] GLUCOSE 93 70 - 99 mg/dL 06/29/2025 2:18 AM [facility] BUN 14 5 - 18 mg/dL 06/29/2025 2:18 AM [facility] CREATININE, BLOOD 1.11(H) 0.60 - 1.00 mg/dL 06/29/2025 2:18 AM [facility] BUN/CREATININE RATIO 13 12 - 20 ratio 06/29/2025 2:18 AM [facility] TOTAL PROTEIN 7.1 6.0 - 8.0 g/dL 06/29/2025 2:18 AM [facility] ALBUMIN 4.5 3.5 - 5.0 g/dL 06/29/2025 2:18 AM [facility] A/G RATIO 1.7 1.0 - 2.2 06/29/2025 2:18 AM [facility] CALCIUM 9.3 8.7 - 10.5 mg/dL 06/29/2025 2:18 AM [facility] T BILI 0.2 0.2 - 1.2 mg/dL 06/29/2025 2:18 AM [facility] SGOT (AST) 26 <43 U/L 06/29/2025 2:18 AM DIGITAL ASSOCIATE [facility] SGPT (ALT) 22 <56 U/L 06/29/2025 2:18 AM DIGITAL ASSOCIATE [facility] ALKALINE PHOSPHATASE 58 40 - 150 U/L 06/29/2025 2:18 AM DIGITAL ASSOCIATE [facility] GFR, ESTIMATED >60 >=60 06/29/2025 2:18 AM DIGITAL ASSOCIATE [facility] Comment: Creatinine Clearance is the preferred criteria for selecting drug dose adjustments in renally impaired patients. The GFR is provided as additional pertinent clinical information. GFR is reported in mL/min/1.73 sq m. Calculation based on the 2020 Chronic Kidney Disease Epidemiology Collaboration (CKD-EPI) equation refit without adjustment for race. GFR, EST. >60 >=60 2:18 AM DIGITAL ASSOCIATE [facility] Comment: Creatinine Clearance is the preferred criteria for selecting drug dose adjustments in renally impaired patients. The GFR is provided as additional pertinent clinical information. GFR is reported in mL/min/1.73 sq m. Calculation based on the 2009 Chronic Kidney Disease Epidemiology Collaboration (CKD-EPI). GFR, EST. NONAFRICAN 54(L) >=60 06/29/2025 2:18 AM DIGITAL ASSOCIATE [facility] Comment: Creatinine Clearance is the preferred criteria for selecting drug dose adjustments in renally impaired patients. The GFR is provided as additional pertinent clinical information. GFR is reported in mL/min/1.73 sq m. Calculation based on the 2009 Chronic Kidney Disease Epidemiology Collaboration (CKD-EPI). Blood Venipuncture / Unknown 06/29/2025 1:51 AM DIGITAL ASSOCIATE 06/29/2025 1:57 AM DIGITAL ASSOCIATE us Melvin Bravo MD CHEMISTRY ORDERABLES Emely vail Result [facility] [place] [address] * Human Chorionic Gonadotropin Scrn Serum (06/29/2025 1:51 AM DIGITAL ASSOCIATE) PREG-HCG Negative Negative 06/29/2025 2:14 AM DIGITAL ASSOCIATE [facility] Blood Venipuncture / Unknown 06/29/2025 1:51 AM DIGITAL ASSOCIATE 06/29/2025 1:57 AM DIGITAL ASSOCIATE us Melvin Bravo MD CHEMISTRY ORDERABLES Emely l Result [facility] [place] [address] * EKG 12 LEAD (06/29/2025 1:37 AM DIGITAL ASSOCIATE) Ventricular Rate 94 BPM EXTERNAL EKG Atrial Rate 94 BPM EXTERNAL EKG P-R Interval 156 ms EXTERNAL EKG QRS Duration 84 ms EXTERNAL EKG Q-T Duration 356 ms EXTERNAL EKG QTC CALCULATION 445 ms EXTERNAL EKG P [place] 62 degrees EXTERNAL EKG R [place] 72 degrees EXTERNAL EKG T [place] 61 degrees EXTERNAL EKG 06/29/2025 1:37 AM DIGITAL ASSOCIATE Impressions EXTERNAL EKG - 06/29/2025 1:50 PM DIGITAL ASSOCIATE Normal sinus rhythm Possible Left atrial enlargement Borderline ECG No previous ECGs available Confirmed by TYLOR MACHADO ([id number]) on 06/29/2025 1:50:19 PM Narrative Procedure Note Tylor Machado MD - 06/29/2025 IMPRESSION: Normal sinus rhythm Possible Left atrial enlargement Borderline ECG No previous ECGs available Confirmed by TYLOR MACHADO ([id number]) on 06/29/2025 1:50:19 PM us Melvin Bravo MD IMG ECG ORDERABLES Final Result EXTERNAL EKG * EKG SCAN (06/29/2025 12:00 AM DIGITAL ASSOCIATE) 06/29/2025 us Provider Scan IMG ECG ORDERABLES Final Result RESULTING AGENCY documented in this encounter Visit Diagnoses Diagnosis Chest pain, unspecified type- Primary Primary hypertension Unspecified essential hypertension documented in this encounter Administered Medications Inactive Administered Medications - up to 3 most recent administrations Medication Order MAR Action Action Date Dose Rate Site aspirin chewable tablet 324 mg 324 mg, Oral, ONCE, 1 dose, On Wed06/29/25 at 0200Indications:Acute Myocardial Infarction Given 06/29/2025 2:05 AM DIGITAL ASSOCIATE 324 mg Enalaprilat (VASOTEC) injection 2.5 mg 2.5 mg, Intravenous, ONCE, 1 dose, On Wed06/29/25 at 0200, Administer over 5 Minutes Given 06/29/2025 2:05 AM DIGITAL ASSOCIATE 2.5 mg documented in this encounter Active and Recently Administered Medications Times are shown in DIGITAL ASSOCIATE. Scheduled Medication Order 06/27/2025 06/28/2025 06/29/2025 aspirin chewable tablet 324 mg (COMPLETED) 324 mg, Oral, ONCE, 1 dose, On Wed06/29/25 at 0200 0205 (Given - Provid er: Miladis Aparicio RN) Enalaprilat (VASOTEC) injection 2.5 mg (COMPLETED) 2.5 mg, Intravenous, ONCE, 1 dose, On Wed06/29/25 at 0200, Administer over 5 Minutes 0205 (Given - Provid er: Miladis Aparicio RN) documented in this encounter Care Teams [employer] Sergeant Relationship Specialty Start Date End Date Clara Shepherd, [employer] MACHINE OPERATOR, STRATEGY MANAGER 2 [facility] , [address] [address] PCP - General Advanced Practice Nurse 06/29/25 documented as of this encounter
--- OUTSIDE RECORDS SUMMARY | 2025-06-30 15:56 | XMS_ITS | Clinical Summary ---
Author Organization [facility] Address [address] y[place] [address] Care Team Providers Care Computer Game Programmer Name Role Phone Clara Shepherd NP Primary Care Provider Allergies No known active allergies Medications rizatriptan HANDY MAN (MAXALT-HANDY MAN) 5 mg disintegrating tabletIndications :Migraine Take 1 tablet (5 mg total) by mouth once as needed for migraine for up to 1 dose May repeat in 2 hours if needed 20 tablet 2 04/10/20 25 Active sertraline (ZOLOFT) 100 mg tabletIndications :Recurrent major depressive disorder, remission status unspecified Take 1 tablet (100 mg total) by mouth daily 90 tablet 1 06/01/20 25 026 Active lisdexamfetamine 10 mg tablet,chewableIn dications:Attenti on-Deficit Hyperactivity Disorder Take 10 mg by mouth daily 30 tablet 06/01/20 25 Active amLODIPine (NORVASC) 5 mg tablet Take 1 tablet (5 mg total) by mouth daily 30 tablet 06/26/20 25 026 Active sertraline (ZOLOFT) 25 mg tabletIndications :Recurrent major depressive disorder, remission status unspecified Take 2 tablets (50 mg total) by mouth daily 04/27/20 25 025 Discontinued(R eorder) cloNIDine ER (KAPVAY) 0.1 mg tablet extended release 12 hrIndications:Att ention deficit hyperactivity disorder (ADHD), unspecified ADHD type Take 1 tablet (0.1 mg total) by mouth nightly 14 tablet 04/27/20 25 025 Discontinued fluconazole (DIFLUCAN) 150 mg tablet Take 1 tablet (150 mg total) by mouth once for 1 dose 2 tablet 06/27/20 025 Active Problems Problem Noted Date Diagnosed Date Preventative health care 01/24/2025 Assessment & Plan (01/24/2025 5:07 PM CDT): - New or chronic worsening conditions: migraines - Mental health: dysphoric mood due to social situation - Dental health: Up to date with regular dental care and cleaning. Discussed importance of regular tooth brushing, flossing, and dental visits. - Nutrition: Stressed importance of moderation in sodium/caffeine intake, saturated fat and cholesterol, caloric balance, sufficient intake of fresh fruits, vegetables - Exercise: Stressed the importance of regular exercise - Immunizations: Age and sex appropriate immunizations reviewed and offered - Cervical Cancer screening: Recommended, order placed - Breast Cancer screening: Recommended, order placed - control: tubal ligation Orders: CBC with auto differential; Future Comprehensive metabolic panel; Future Thyroid Function Foster; Future Lipid panel; Future Hemoglobin A1c; Future Chronic migraine with aura w ithout status migrainosus, not intractable 01/24/2025 Assessment & Plan (04/10/2025 3:01 PM CDT): -chronic, improved -patient currently takes rizatriptan 5 mg as needed -Patient reports she has noticed improvement since starting rizatriptan for migraines -patient reports having migraine headache 1 to 2 times week -encourage patient to use p.r.n. migraine medication if needs so -Refill of medication provided -continue current treatment plan Orders: rizatriptan HANDY MAN (MAXALT-HANDY MAN) 5 mg disintegrating tablet; Take 1 tablet (5 mg total) by mouth once as needed for migraine for up to 1 dose May repeat in 2 hours if needed Assessment & Plan (01/24/2025 5:07 PM CDT): -chronic, suboptimally controlled -patient currently takes OTC medication as needed which does provide some relief, but does not seem to be helping as much anymore -patient reports having migraine headache multiple times a week -Rizatriptan 5 mg as needed prescribed; may consider increasing dose if not improved at next visit -continue current treatment plan Orders: rizatriptan HANDY MAN (MAXALT-HANDY MAN) 5 mg disintegrating tablet; Take 1 tablet (5 mg total) by mouth once as needed for migraine for up to 1 dose May repeat in 2 hours if needed Recurrent major depressive disorder 01/24/2025 Assessment & Plan (06/01/2025 2:14 PM TIMBER SPRINKLER): -chronic, suboptimally controlled -patient currently takes sertraline 50 mg daily which he states has helped her mood some -Patient reports she has been under lot of stress recently -patient denies any worsening of depressed mood, thoughts of harming themselves or others, or worsening anxiety -Will increase sertraline to 100 mg daily -continue current treatment plan Orders: sertraline (ZOLOFT) 100 mg tablet; Take 1 tablet (100 mg total) by mouth daily Assessment & Plan (04/10/2025 3:01 PM CDT): -chronic, not at goal -patient currently takes Wellbutrin 150 mg daily which she states has made her depression worse -patient denies any thoughts of harming themselves or others, or worsening anxiety -Wellbutrin discontinued, Sertraline 25 mg daily prescribed -continue current treatment plan Orders: sertraline (ZOLOFT) 25 mg tablet; Take 1 tablet (25 mg total) by mouth daily Assessment & Plan (01/24/2025 5:07 PM CDT): -chronic, not well controlled -patient currently does not take medication -Patient endorses worsening depression due to some social/family situations -patient denies any thoughts of harming themselves or others, or worsening anxiety -Will trial Wellbutrin 150 mg daily to help with dysphoric mood and attention -continue current treatment plan Orders: buPROPion XL (WELLBUTRIN XL) 150 mg 24 hr tablet; Take 1 tablet (150 mg total) by mouth every morning Body mass index (BMI) of 22.0 to 22.9 in adult 0 01/24/2025 Assessment & Plan (06/01/2025 2:14 PM TIMBER SPRINKLER): Wt Readings from Last 3 Encounters: 06/01/25 63 kg (139 lb) 04/10/25 62.1 kg (137 lb) 01/24/25 63 kg (139 lb) Body mass index is 22.78 kg/m . -Stable, at goal of <30 bmi -Discussed recommendations for exercise at least 30 minutes moderate to vigorous exercise as tolerated most days of the week. (minimum 150 minutes weekly) -Discussed importance of well-balanced diet Assessment & Plan (04/10/2025 3:01 PM CDT): Wt Readings from Last 3 Encounters: 04/10/25 62.1 kg (137 lb) 01/24/25 63 kg (139 lb) 10/22/24 64 kg (141 lb 3.2 oz) Body mass index is 22.45 kg/m . -Stable, at goal of <30 bmi -Discussed recommendations for exercise at least 30 minutes moderate to vigorous exercise as tolerated most days of the week. (minimum 150 minutes weekly) -Discussed importance of well-balanced diet Assessment & Plan (01/24/2025 5:07 PM CDT): Wt Readings from Last 3 Encounters: 01/24/25 63 kg (139 lb) 10/22/24 64 kg (141 lb 3.2 oz) Body mass index is 22.78 kg/m . -Stable, at goal of <30 bmi -Discussed recommendations for exercise at least 30 minutes moderate to vigorous exercise as tolerated most days of the week. (minimum 150 minutes weekly) -Discussed importance of well-balanced diet Attention deficit hyperactivity disorder (ADHD) 01/24/2025 Assessment & Plan (06/01/2025 2:14 PM TIMBER SPRINKLER): -chronic, suboptimally controlled -currently prescribed clonidine 0.1 mg nightly which she states she did not find much improvement from -previously tried Adderall, Vyvanse -patient reports struggling with inattentiveness and hyperactivity -encourage patient to make lifestyle modifications such as to do lists and reminder alarms -Will start Vyvanse 10 mg daily -continue current treatment plan with the specialists Orders: lisdexamfetamine 10 mg tablet,chewable; Take 10 mg by mouth daily Assessment & Plan (01/24/2025 5:07 PM CDT): -chronic, not well controlled -currently does not take medication -previously tried Adderall -patient reports struggling mostly with inattentiveness -patient reports their ADHD is stable with their current regimen -encourage patient to make lifestyle modifications such as to do lists and reminder alarms -Will trial Wellbutrin 150 mg to help with attention and dysphoric mood; if not improved may consider switching to another option -continue current treatment plan with the specialists Orders: buPROPion XL (WELLBUTRIN XL) 150 mg 24 hr tablet; Take 1 tablet (150 mg total) by mouth every morning Encounters Date Type Department Care Team Description 06/29/2025 Telephone [facility] at [address] [phone] Clara Shepherd NP Medication Request 06/26/2025 9:17 PM TIMBER SPRINKLER - 06/27/2025 12:12 AM TIMBER SPRINKLER Emergency [facility] Emergency Department [address] [place] [address] Chest pain, unspecified type (Primary Dx) Discharge Disposition: Discharge to home or self care 06/04/2025 Telephone [facility] at [address] [phone] Clara Shepherd, CHARLINE 06/01/2025 1:00 PM TIMBER SPRINKLER Office Visit [facility] at [address] [phone] Clara Shepherd, CHARLINE Recurrent major depressive disorder, remission status unspecified (Primary Dx); Attention deficit hyperactivity disorder (ADHD), combined type; Body mass index (BMI) of 22.0 to 22.9 in adult 05/07/2025 Telephone [facility] at [address] [phone] Clara Shepherd NP 04/27/2025 Orders Only [facility] at [address] [phone] Clara Shepherd, ICT [employer]CH[employer] Attention deficit hyperactivity disorder (ADHD), unspecified ADHD type (Primary Dx); Recurrent major depressive disorder, remission status unspecified 04/24/2025 Telephone [facility] at [address] [phone] Clara Shepherd NP Anxiety; Test Results 04/10/2025 2:00 PM CDT Office Visit [facility] at [address] [phone] Clara Shepherd NP Recurrent major depressive disorder, remission status unspecified (Primary Dx); Chronic migraine with aura without status migrainosus, not intractable; Body mass index (BMI) of 22.0 to 22.9 in adult 04/06/2025 Nurse Triage [facility] at [address] [phone] Clara Shepherd NP 04/06/2025 Telephone [facility] at [address] [phone] Clara Shepherd NP Appointment Request from Last 3 Months Immunizations Immunization Administration Dates Next Due Influenza, Unspecified 06/01/2025(Deferred: Vane ent Refused) Surgical History Surgery Date Site/Laterality Comments TUBAL LIGATION Bilateral MULTIPLE TOOTH EXTRACTIONS Medical History Medical History Date Comments ADHD (attention deficit hyperactivity disorder) Arthritis Scoliosis Anxiety Memory loss Depression Migraine Family History Medical History Relation Name Comments No Known Problems Brother No Known Problems Father No Known Problems Maternal Grandfather Heart failure Maternal Grandmother No Known Problems Mother Heart failure Paternal Grandfather Relation Name Status Comments Brother Alive Father Alive Maternal Grandfather Alive Maternal Grandmother Alive Mother Alive Paternal Grandfather Paternal Grandmother Social History Tobacco Use Types Packs/Day Years Used Date Smoking Tobacco: Every Day Cigarettes 1 22.9 Started: 2002 Tobacco Cessation:Ready to Q uit: Not Asked; Counseling Given: Not Answered Alcohol Use Standard Drinks/Week Comments Never 0 (1 standard drink = 0.6 oz pur e alcohol) PHQ-2 Answer Date Recorded PHQ-2 Total Score (If total score is 3 or more points, staff should administer the PHQ-9) 2 06/01/2025 PHQ-9 Answer Date Recorded PHQ-9 Total Score 13 04/10/2025 AUDIT-C Answer Date Recorded Q1: How often do you have a drink containing alcohol? Never 04/10/2025 Q2: How many drinks containi ng alcohol do you have on a typical day when you are drinking? Patient does not drink Q3: How often do you have si x or more drinks on one occasion? Never 04/10/2025 Personal Safety Answer Date Recorded Have you ever been in or are you currently in a harmful physical or emotional relationship or is someone making you feel afraid or unsafe? Denies 06/26/2025 Comments No Sex and Gender Information Value Date Recorded Sex Assigned at Not on file Legal Sex Female 12:39 PM CDT Gender Identity Not on file Sexual Orientation Not on file Last Filed Vital Signs Vital Sign Reading Time Taken Comments Blood Pressure 135/99 06/27/2025 12:00 AM TIMBER SPRINKLER Pulse 89 06/27/2025 12:00 AM TIMBER SPRINKLER Temperature 36.5 C (97.7 F) 06/26/2025 7:51 PM TIMBER SPRINKLER Respiratory Rate 17 06/27/2025 12:00 AM TIMBER SPRINKLER Oxygen Saturation 100% 06/27/2025 12:00 AM TIMBER SPRINKLER Inhaled Oxygen Concentration - - Weight 59 kg (130 lb) 06/26/2025 7:51 PM TIMBER SPRINKLER Height 167.6 cm (5' 6) 06/26/2025 7:51 PM TIMBER SPRINKLER Body Mass Index 20.98 06/26/2025 7:51 PM TIMBER SPRINKLER Plan of Treatment Health Maintenance Due Date Last Done Comments Breast Cancer Screening-Mammogram 1984 Cervical Cancer Screening 1984 Hepatitis C Screening 1984 DTaP/Tdap/Td Vaccine (1 - Tdap) 1995 Hepatitis B Screening 2002 Pneumococcal vaccine <65 (1 of 2 - PCV) 2003 HPV Vaccines (1 - 3-dose SCD M series) 2011 Influenza Vaccine (#1) 2025 Regular Well Visit/Exam 18-64 01/24/2026 01/24/2025, 01/24/2025 Depression Screening 06/01/2026 06/01/2025, 04/10/2025, 04/10/2025, Additional history exists Varicella Vaccines Discontinued Procedures Procedure Name Priority Date/Time Associated Diagnosis Comments TROPONIN T HIGH-SENSITIVITY 2-HOUR Timed 06/26/2025 10:16 PM TIMBER SPRINKLER XR CHEST PA LATERAL 2 VIEWS ED 06/26/2025 8:23 PM TIMBER SPRINKLER POCT HCG, URINE Routine 06/26/2025 8:21 PM TIMBER SPRINKLER URINALYSIS, MICROSCOPIC ONLY STAT 06/26/2025 8:17 PM TIMBER SPRINKLER URINALYSIS AND REFLEX TO MICROSCOPIC AND CULTURE STAT 06/26/2025 8:17 PM TIMBER SPRINKLER EGFR STAT 06/26/2025 8:02 PM TIMBER SPRINKLER DIFFERENTIAL AUTO STAT 06/26/2025 8:0 2 PM TIMBER SPRINKLER TROPONIN T HIGH-SENSITIVITY SERIES (BASELINE, 2HR, 4HR, 6HR) STAT 06/26/2025 8:02 PM TIMBER SPRINKLER COMPREHENSIVE METABOLIC PANEL STAT 06/26/2025 8:02 PM TIMBER SPRINKLER CBC WITH AUTO DIFFERENTIAL STAT 06/26/2025 8:02 PM TIMBER SPRINKLER ECG 12-LEAD STAT 06/26/2025 7:57 PM TIMBER SPRINKLER from Last 3 Months Results * Troponin T high-sensitivity 2-hour (06/26/2025 10:16 PM TIMBER SPRINKLER) Trop T hs <6 <=14 ng/L Comment: Interpretive Data For further hscTnT resources including the diagnostic algorithm and an aid in interpretation, copy and paste this link: https://nrl.testcatalog.org/show/hsTrop Current Interpretive Data last revised 2020. Trop T hs delta 0 ng/L [facility] ([facility]) Trop T hs interp Insignificant [facility] ([facility]) Blood 06/26/2025 10:1 6 PM TIMBER SPRINKLER 06/26/2025 10:23 PM TIMBER SPRINKLER Joni Crawley [employer] LAB BLOOD ORDERABLES Final Re sult [facility]) [address] [facility] Department [place] [address] * XR Chest Pa Lateral 2 Vw (06/26/2025 8:23 PM TIMBER SPRINKLER) Anatomical Region Laterality Modality Body, Chest N/A Computed Radiogr aphy 06/26/2025 10:3 7 PM TIMBER SPRINKLER Impressions 06/26/2025 10:37 PM TIMBER SPRINKLER No acute cardiopulmonary process. Electronically signed by: Darrell Abbasi M.D. Narrative 06/26/2025 10:37 PM TIMBER SPRINKLER EXAMINATION: XR CHEST PA LATERAL 2 VIEWS ORDERING HEALTHCARE PROVIDER: JONI CRAWLEY HISTORY: CHEST PAIN COMPARISON: None TECHNIQUE: PA and lateral views of the chest. FINDINGS: LUNGS/PLEURA: There is no focal airspace consolidation. No pleural effusion or pneumothorax is noted. HEART/MEDIASTINUM: The heart size is within normal limits. Normal mediastinal and hilar contours. HARDWARE/LINES/TUBES: None. BONES: No acute findings. OTHER: No other acute findings. Procedure Note Darrell Abbasi MD - 06/26/2025 EXAMINATION: XR CHEST PA LATERAL 2 VIEWS ORDERING HEALTHCARE PROVIDER: JONI CRAWLEY HISTORY: CHEST PAIN COMPARISON: None TECHNIQUE: PA and lateral views of the chest. FINDINGS: LUNGS/PLEURA: There is no focal airspace consolidation. No pleural effusion or pneumothorax is noted. HEART/MEDIASTINUM: The heart size is within normal limits. Normal mediastinal and hilar contours. HARDWARE/LINES/TUBES: None. BONES: No acute findings. OTHER: No other acute findings. IMPRESSION: No acute cardiopulmonary process. Electronically signed by: Darrell Abbasi M.D. us Joni Crawley [employer] IMG XR PROCEDURES Final Resul t * POCT hCG, urine (06/26/2025 8:21 PM TIMBER SPRINKLER) HCG, ur, POC Negative Negative Lot Number [id number] QC Backgroud Clear Acceptable QC Control Line Acceptable Urine 06/26/2025 8:21 PM TIMBER SPRINKLER us Joni Crawley [employer] POINT OF CARE TEST ORDERABLES Final Result * (ABNORMAL) Urinalysis reflex to microscopic and culture Urine (06/26/2025 8:17 PM TIMBER SPRINKLER) Color, ur Yellow Yellow Clarity, ur Turbid(A) Clear [facility] ([facility]) Specific gravity, ur 1.010 1.003 - 1.030 [facility] ([facility]) pH, urine 7.5 [facility] ([facility]) Comment: Interpretive Data U rine pH is affected by diet, medications, systemic acid-base disturbances, and renal tubular function. pH may affect urinary stone formation. For example, urine pH below 6.0 may help reduce the tendency for calcium phosphate stones and pH greater than 6.0 may reduce the tendency for uric acid stone formation. Source: [facility] tinyclues Current Interpretive Data was last revised on 2017 Protein, ur ql Negative Negative [facility] ([facility]) Glucose, ur ql Negative Negative [facility] ([facility]) Ketones, ur Negative Negative [facility] ([facility]) Bilirubin, ur Negative Negative [facility] ([facility]) Blood, ur Negative Negative [facility] ([facility]) Urobilinogen, ur <2.0 <2.0 mg/dL [facility] ([facility]) Nitrite, ur Negative Negative [facility] ([facility]) Leukocyte esterase, ur 2+(A) Negative [facility] ([facility]) UA reflex comment Reflex to microscopic UA will be performed. [facility] ([facility]) Urine 06/26/2025 8:17 PM TIMBER SPRINKLER 06/26/2025 8:19 PM TIMBER SPRINKLER us Joni Crawley NP LAB MICROBIOLOGY - GENERAL OR DERABLES Final Result [facility] ([facility]) [address] [facility] Department [place] [address] * (ABNORMAL) Urinalysis, microscopic only (06/26/2025 8:17 PM TIMBER SPRINKLER) WBC, ur 6-10(A) 0 - 5 /HPF RBC, ur 0-2 0 - 2 /HPF [facility] ([place]) Epithelial cells, squamous, ur 1-5 0 - 5 /HPF [facility] ([place]) Yeast, ur 2+(A) [facility] ([place]) Mucous, ur Present(A) [facility] A ([place]) Culture Reflex Comment Reflex conditions for urine culture (WBC >10) not met. [facility] ([place]) Urine 06/26/2025 8:17 PM TIMBER SPRINKLER 06/26/2025 8:19 PM TIMBER SPRINKLER us Joni Crawley [employer] LAB URINE ORDERABLES Final Re sult Performing Organization Address [facility]/ZIP Co de Phone Number [facility] ([place]) [address] [place] [address] [place] [address] * Troponin T high-sensitivity series (baseline, 2hr, 4hr, 6hr) (06/26/2025 8:02 PM TIMBER SPRINKLER) Pathologist [facility] Trop T hs <6 <=14 ng/L Comment: Interpretive Data For further hscTnT resources including the diagnostic algorithm and an aid in interpretation, copy and paste this link: https://nrl.testcatalog.org/show/hsTrop Current Interpretive Data last revised 2020. Blood 06/26/2025 8:02 PM TIMBER SPRINKLER 06/26/2025 8:09 PM TIMBER SPRINKLER us Join Crawley [employer] LAB BLOOD ORDERABLES Final Re sult Performing Organization Address City/[facility]/ZIP Co de Phone Number [facility] ([place]) [address] [place] [address] [place] [address] * eGFR (06/26/2025 8:02 PM TIMBER SPRINKLER) eGFR 65 >=60 mL/min/1. 73 m2 Comment: Interpretive Data Reference Interval Normal >/= 90 mL/min/1.73m2 Mildly decreased* 60 - 89 mL/min/1.73m2 Mildly to moderately decreased 45 - 59 mL/min/1.73m2 Moderately to severely decreased 30 - 44 mL/min/1.73m2 Severely decreased 15 - 29 mL/min/1.73m2 Kidney Failure < 15 mL/min/1.73m2 *Relative to young adult level Estimated glomerular filtration rate is determined by the 2020 CKD-EPI equation recommended by the National Kidney Foundation (A Unifying Approach to GFR Estimation: Recommendations of the NKF-ASK Task Force on Reassessing the Inclusion of Race in Diagnosing Kidney Disease, JASN 2020). The CKD-EPI equation should not be used for patients with unstable renal function and has not been validated in children and those over 70. Current interpretive data was last reviewed 2021. Blood 06/26/2025 8:02 PM TIMBER SPRINKLER 06/26/2025 8:09 PM TIMBER SPRINKLER Joni Crawley NP LAB BLOOD ORDERABLES Final Re sult [facility] ([place]) [address] [facility] Department [place] [address] * Differential, auto (06/26/2025 8:02 PM TIMBER SPRINKLER) Neutrophil abs 4.11 1.50 - 6.50 K/cumm Imm gran abs 0.01 0.00 - 0.10 K/cumm [facility] ([facility]) Lymphocyte abs 1.76 0.80 - 3.30 K/cumm [facility] ([place]) Monocyte abs 0.58 0.20 - 0.80 K/cumm [facility] ([place]) Eosinophil abs 0.14 0.00 - 0.50 K/cumm [facility] ([place]) Basophil abs 0.04 0.00 - 0.10 K/cumm [facility] ([facility]) Neutrophil pct 61.9 % [facility] ([facility]) Comment: Interpretive Data Percent cell count reference ranges are not reported, since discordance with absolute values may lead to misinterpretation of CBC data. Current Interpretive Data was last revised on 2017. Imm gran pct 0.2 % [facility] ([place]) Comment: Interpretive Data Percent cell count reference ranges are not reported, since discordance with absolute values may lead to misinterpretation of CBC data. Current Interpretive Data was last revised on 2017. Lymphocyte pct 26.5 % [facility] ([facility]) Comment: Interpretive Data Percent cell count reference ranges are not reported, since discordance with absolute values may lead to misinterpretation of CBC data. Current Interpretive Data was last revised on 2017. Monocyte pct 8.7 % [facility] ([place]) Comment: Interpretive Data Percent cell count reference ranges are not reported, since discordance with absolute values may lead to misinterpretation of CBC data. Current Interpretive Data was last revised on 2017. Eosinophil pct 2.1 % [facility] ([facility]) Comment: Interpretive Data Percent cell count reference ranges are not reported, since discordance with absolute values may lead to misinterpretation of CBC data. Current Interpretive Data was last revised on 2017. Basophil pct 0.6 % [facility] ([place]) Comment: Interpretive Data Percent cell count reference ranges are not reported, since discordance with absolute values may lead to misinterpretation of CBC data. Current Interpretive Data was last revised on 2017. Blood 06/26/2025 8:02 PM TIMBER SPRINKLER 06/26/2025 8:09 PM TIMBER SPRINKLER us Joni Crawley NP LAB BLOOD ORDERABLES Final Re sult [facility] ([place]) [address] [facility] Department [place] [address] * CBC with auto differential (06/26/2025 8:02 PM TIMBER SPRINKLER) WBC 6.64 3.80 - 9.90 K/cumm Hgb 14.5 11.9 - 15.5 g/dL [facility] ([facility]) Hct 44.3 35.6 - 45.5 % [facility] ([facility]) Plt 185 150 - 400 K/cumm [facility] ([facility]) MPV 11.2 9.1 - 12.3 fL [facility] ([place]) RBC 5.02 3.90 - 5.20 M/cumm [facility] ([facility]) MCV 88.2 81.3 - 96.4 fL [facility]) MCH 28.9 27.1 - 33.3 pg [facility] ([facility]) MCHC 32.7 32.3 - 35.7 g/dL [facility]) RDW CV 13.1 11.1 - 14.9 % [facility] RDW SD 42.1 35.7 - 48.1 fL [facility]) NRBC abs 0.00 0.00 - 0.01 K/cumm [facility] ([facility]) Blood 06/26/2025 8:02 PM TIMBER SPRINKLER 06/26/2025 8:09 PM TIMBER SPRINKLER us Joni Crawley NP LAB BLOOD ORDERABLES Final Re sult [facility] ([place]) [address] [facility] Department [place] [address] * (ABNORMAL) Comprehensive metabolic panel (06/26/2025 8:02 PM TIMBER SPRINKLER) Sodium 139 135 - 145 mmol/L Potassium, pl 4.5 3.3 - 4.9 mmol/L [facility] ([place]) Chloride 101 97 - 110 mmol/L [facility]) CO2 30 22 - 32 mmol/L [facility] ([place]) Anion gap 8 2 - 15 mmol/L [facility] ([place]) BUN 14 6 - 25 mg/dL [facility] ([facility]) Creatinine 1.09 0.60 - 1.10 mg/dL [facility] ([facility]) Glucose 117 70 - 199 mg/dL [facility] ([facility]) Comment: Interpretive Data Fasting glucose >/= 126 mg/dl is diagnostic for diabetes. Fasting is defined as no caloric intake for at least 8 hours. Fasting glucose between 100 mg/dl to 125 mg/dl is diagnostic of prediabetes. In a patient with classic symptoms of hyperglycemia or hyperglycemic crisis, a random glucose >/= 200 mg/dl is diagnostic for diabetes. In the absence of unequivocal hyperglycemia, results should be confirmed by repeat testing. The classification and Diagnosis of Diabetes Diabetes Care 2021; 46: S19-S40. Current interpretive data was last revised 2022. Calcium 9.8 8.5 - 10.3 mg/dL [facility] ([facility]) Bilirubin, total 0.2 0.1 - 1.2 mg/dL [facility] ([facility]) Protein, pl 6.4(L) 6.5 - 8.5 g/dL [facility] ([facility]) Albumin 4.2 3.5 - 5.0 g/dL [facility] ([facility]) Alk phos 51 40 - 130 Units/L [facility] ([facility]) ALT 21 7 - 45 Units/L [facility] ([facility]) AST 24 10 - 45 Units/L [facility] ([facility]) Blood 06/26/2025 8:02 PM TIMBER SPRINKLER 06/26/2025 8:09 PM TIMBER SPRINKLER Joni Crawley NP LAB BLOOD ORDERABLES Final Re sult Performing Organization Address [facility] Co de Phone Number [facility] ([facility]) [address] [facility] [place] [address] * ECG 12 lead (06/26/2025 7:57 PM TIMBER SPRINKLER) 06/26/2025 7:57 PM TIMBER SPRINKLER Narrative [facility] - 06/27/2025 6:40 AM TIMBER SPRINKLER Vent Rate: 90 bpm RR Interval: 663 msec ME Interval: 151 msec QRS Duration: 87 msec QT Interval: 342 msec QTC Interval: 390 msec P-R-T Alloway: 78 - 80 - 72 degrees IMPRESSION: SINUS RHYTHM POSSIBLE LEFT ATRIAL ENLARGEMENT [-0.1mV P WAVE IN V1/V2] BORDERLINE ECG Electronically Signed By: Andrew Catalan MD Joni Crawley NP ECG ORDERABLES Final Result Performing Organization Address [facility] Co de Phone Number [facility] [employer] [facility] from Last 3 Months Insurance [facility] Care Teams Computer Game Programmer Relationship Specialty Start Date End Date Clara Shepherd, ICT [employer] [address] [place] [address] PCP - General Family Medicine 01/24/25
--- OUTSIDE RECORDS SUMMARY | 2025-06-30 15:56 | XMS_ITS | Encounter Summary ---
Author Organization [employer] Care Team Providers Care Advertising Project Manager Name Role Phone Clara Shepherd SUPERVISOR POLE YARD, INJECTION MOLD TECHNICIAN Primary Care Pro vider Encounter Details Date Type Department Care Team (Latest Contact Info) Description 06/29/2025 Travel Social History Tobacco Use Types Packs/Day Years Used Date Smoking Tobacco: Every Day Cigarettes Comments No Sex and Gender Information Value Date Recorded Sex Assigned at Not on file Legal Sex Female 1:28 AM LINE LEAD Gender Identity Not on file Sexual Orientation Not on file documented as of this encounter Functional Status * Question Answer Date of Assessment Author Best Eye Response 4-->(E4) spontaneous 06/29/2025 1:49 AM LINE LEAD Miladis Aparicio RN Best Verbal Response 5-->(V5) oriented 06/29/2025 1:49 AM Miladis Masterson RN Best Motor Response 6-->(M6) obeys commands 06/29/2025 1:49 AM LINE LEAD Miladis Aparicio RN [place] Coma Scale Score 15 06/29/2025 1:49 AM LINE LEAD Miladis Aparicio RN * Question Answer Date of Assessment Author Pain Description intermittent;sharp 06/29/2025 3:22 AM LINE LEAD Bre Ghosh RN * [place] Fall Risk Question Answer Date of Assessment Author History of Falling, Immediat e or Within 3 Months 0 06/29/2025 1:36 AM Bre Kenney RN Secondary Diagnosis 0 06/29/2025 1:36 AM CS T Bre Ghosh RN Ambulatory Aid 0 06/29/2025 1:36 AM LINE LEAD Bre Montano RN Intravenous Therapy/Heparin Lock 20 06/29/20 25 1:36 AM Bre Kenney RN Gait/Transferring 0 06/29/2025 1:36 AM Bre Kenney RN Mental Status 0 06/29/2025 1:36 AM Bre Dennis RN [place] Fall Risk Score 20 06/29/2025 1:36 AM Bre Kenney RN * Question Answer Date of Assessment Author SpO2 100 06/29/2025 3:00 AM Bre Spence RN O2 Device None (Room air) 06/29/2025 1:34 AM Bre Melara Ra, RN * Question Answer Date of Assessment [...] Pain Intervention cardiac biomarke rs drawn;cardiac monitoring continued;printed circuit boards solder leveler placed;12-lead ECG obtained;activity minimized 06/29/2025 1:37 AM Miladis Masterson RN * Question Answer Date of Assessment Author Temp 96.7 06/29/2025 1:34 AM Bre Spenec RN documented as of this encounter Mental Status * Question Answer Entry Date Author Best Eye Response 4-->(E4) spontaneous 1:49 AM Miladis Masterson RN Best Verbal Response 5-->(V5) oriented 1:49 AM Miladis Masterson RN Best Motor Response 6-->(M6) obeys commands 11/2024 1:49 AM Miladis Masterson RN [place] Coma Scale Score 15 06/29/2025 1:49 AM [...] Pain Intervention cardiac biomarke rs drawn;cardiac monitoring continued;printed circuit boards solder leveler placed;12-lead ECG obtained;activity minimized 06/29/2025 1:37 AM Miladis Masterson RN * Question Answer Entry Date Author Temp 96.7 06/29/2025 1:34 AM Bre Spence RN documented in this encounter Plan of Treatment Not on file documented as of this encounter Visit Diagnoses Not on filedocumented in this encounter Care Teams Advertising Project Manager Relationship Specialty Start Date End Date Clara Shepherd, SUPERVISOR POLE YARD, INJECTION MOLD TECHNICIAN [address] [place] [address] , [address] [address] PCP - General Advanced Practice Nurse 06/29/25 documented as of this encounter
--- OUTSIDE RECORDS SUMMARY | 2025-06-30 15:56 | XMS_ITS | Clinical Summary ---
Author Organization [facility] Address [address] [place] [address] Phone Care Team Providers Care Inspector Semiconductor Wafer Name Role Phone Clara Shepherd APRN, CNP Primary Care Pro vider Medications No known medications Encounters Date Type Department Care Team Description 06/29/2025 1:29 AM CAMPUS RECRUITING COORDINATOR - 06/29/2025 3:23 AM CAMPUS RECRUITING COORDINATOR Emergency [facility] Emergency [address] [place] [address] Melvin Bravo MD Primary hypertension Discharge Disposition: Discharged to home or Selfcare 06/29/2025 Travel from Last 3 Months Social History Tobacco Use Types Packs/Day Years Used Date Smoking Tobacco: Every Day Cigarettes Tobacco Cessation:Ready to Q uit: Not Asked; Counseling Given: Not Answered Comments No Sex and Gender Information Value Date Recorded Sex Assigned at Not on file Legal Sex Female 1:28 AM CAMPUS RECRUITING COORDINATOR Gender Identity Not on file Sexual Orientation Not on file Last Filed Vital Signs Vital Sign Reading Time Taken Comments Blood Pressure 142/93 06/29/2025 3:00 AM CAMPUS RECRUITING COORDINATOR Pulse 97 06/29/2025 3:00 AM CAMPUS RECRUITING COORDINATOR Temperature 35.9 C (96.7 F) 06/29/2025 1:34 AM CAMPUS RECRUITING COORDINATOR Respiratory Rate 20 06/29/2025 3:00 AM CAMPUS RECRUITING COORDINATOR Oxygen Saturation 100% 06/29/2025 3:00 AM CAMPUS RECRUITING COORDINATOR Inhaled Oxygen Concentration - - Weight 56.7 kg (125 lb) 06/29/2025 1:37 AM CAMPUS RECRUITING COORDINATOR Height 167.6 cm (5' 6) 06/29/2025 1:37 AM CAMPUS RECRUITING COORDINATOR Body Mass Index 20.18 06/29/2025 1:37 AM CAMPUS RECRUITING COORDINATOR Plan of Treatment Health Maintenance Due Date Last Done Comments Hepatitis C Virus (HCV) Screening 1984 Mammogram 1984 TdaP Immunization 1984 Varicella Immunization (1 of 2 - 13+ 2-dose series) 1997 Hepatitis B Immunization (1 of 3 - 19+ 3-dose series) 2003 Pneumococcal Immunization Co mbined (1 of 2 - PCV) 2003 Pap Smear 2005 Human Papillomavirus (HPV) Immunization (1 - 3-dose SCDM series) 2011 Cervical Cancer Screening (CCS) 2014 HPV/Cotest 2014 Discussion re Starting/Frequ ency of Mammograms 2024 Influenza Immunization (#1) 2025 SARS-COV-2 Immunization ( - season) 2025 Respiratory Syncytial Virus (RSV) Immunization (Adult) (1 - 1-dose 75+ series) 2059 Meningococcal Immunization (ACWY) Aged Out No longer eligible based on patient's age to complete this topic Rotavirus Immunization Aged Out No lo nger eligible based on patient's age to complete this topic Procedures Procedure Name Priority Date/Time Associated Diagnosis Comments XR CHEST SINGLE VIEW PORTABLE STAT 06/29/2025 2:40 AM CAMPUS RECRUITING COORDINATOR CBC WITH AUTO DIFFERENTIAL STAT 06/29/2025 1:51 AM CAMPUS RECRUITING COORDINATOR PROTIME (PT) (PROTHROMBIN TIME) STAT 06/29/2025 1:51 AM CAMPUS RECRUITING COORDINATOR APTT (PTT) STAT 06/29/2025 1:51 AM CAMPUS RECRUITING COORDINATOR TROPONIN I, HIGH SENSITIVITY (HSTRP) STAT 06/29/2025 1:51 AM CAMPUS RECRUITING COORDINATOR CMP (COMPREHENSIVE METABOLIC PANEL) STAT 06/29/2025 1:51 AM CAMPUS RECRUITING COORDINATOR COMPLETE BLOOD COUNT (CBC) WITH DIFF STAT 06/29/2025 1:51 AM CAMPUS RECRUITING COORDINATOR HUMAN CHORIONIC GONADOTROPIN SCRN SERUM STAT 06/29/2025 1:51 AM CAMPUS RECRUITING COORDINATOR EKG 12 LEAD STAT 06/29/2025 1:37 AM CAMPUS RECRUITING COORDINATOR EKG SCAN 06/29/2025 12:00 AM CAMPUS RECRUITING COORDINATOR from Last 3 Months Results * XR CHEST SINGLE VIEW PORTABLE (06/29/2025 2:40 AM CAMPUS RECRUITING COORDINATOR) Anatomical Region Laterality Modality Chest N/A Computed Radiogr aphy 06/29/2025 2:40 AM CAMPUS RECRUITING COORDINATOR Impressions 06/29/2025 5:53 AM CAMPUS RECRUITING COORDINATOR IMPRESSION: No acute cardiopulmonary findings. Narrative 06/29/2025 5:53 AM CAMPUS RECRUITING COORDINATOR DICTATING PHYSICIAN: Harley Badillo M.D., [facility] Exam: XR CHEST SINGLE VIEW [...] - 06/29/2025 DICTATING PHYSICIAN: Harley Badillo M.D., [facility] Exam: XR CHEST SINGLE VIEW PORTABLE [...] MD IMG DIAGNOSTIC ORDERABLES Final Result * TROPONIN I, HIGH SENSITIVITY (HSTRP) (06/29/2025 1:51 AM CAMPUS RECRUITING COORDINATOR) TROPONIN I, HIGH SENSITIVITY- [place] <2.7 <=14.0 ng/L 06/29/2025 2:23 AM [facility] Comment: High-sensitivity troponin I results are reported in ng/L making the result appear to be 1,000 times higher than the contemporary troponin I value which is reported in ng/ml. Results from [place]. Blood Venipuncture / Unknown 06/29/2025 1:51 AM CAMPUS RECRUITING COORDINATOR 06/29/2025 1:57 AM CAMPUS RECRUITING COORDINATOR us Melvin Bravo MD CHEMISTRY ORDERABLES Emely l Result [facility] [address] [place] [address] * CBC with Auto Differential (06/29/2025 1:51 AM CAMPUS RECRUITING COORDINATOR) WBC 7.85 4.00 - 12.00 10(3)/mcL 06/29/2025 1:59 AM [facility] RBC 5.19 3.80 - 5.30 10(6)/mcL 06/29/2025 1:59 AM [facility] HEMOGLOBIN (HGB) 15.2 12.0 - 15.8 g/dL 06/29/2025 1:59 AM [facility] HEMATOCRIT (HCT) 46.2 36.0 - 47.0 % 06/29/2025 1:59 AM [facility] MCV 89.0 82.0 - 96.0 fL 06/29/2025 1:59 AM [facility] MCH 29.3 26.0 - 34.0 pg 06/29/2025 1:59 AM [facility] MCHC 32.9 31.0 - 36.0 g/dL 06/29/2025 1:59 AM [facility] PLATELET COUNT 203 140 - 440 10(3)/mcL 06/29/2025 1:59 AM [facility] RDW 12.9 11.8 - 15.5 % 06/29/2025 1:59 AM [facility] MPV 10.9 9.7 - 12.4 fL 06/29/2025 1:59 AM [facility] NEUTROPHILS 59.1 47.0 - 73.0 % 06/29/2025 1:59 AM [facility] LYMPHOCYTES 27.5 18.0 - 42.0 % 06/29/2025 1:59 AM [facility] MONOCYTES 10.1 4.0 - 12.0 % 06/29/2025 1:59 AM [facility] EOSINOPHILS 2.5 0.0 - 5.0 % 06/29/2025 1:59 AM [facility] BASOPHILS 0.5 0.0 - 1.0 % 06/29/2025 1:59 AM [facility] IMMATURE GRANULOCYTE 0.3 0.0 - 0.4 % 06/29/2025 1:59 AM [facility] ABSOLUTE NEUTROPHILS 4.64 1.60 - 7.70 10(3)/[facility] 06/29/2025 1:59 AM [facility] ABSOLUTE LYMPHOCYTES 2.16 1.30 - 3.20 10(3)/[facility] 06/29/2025 1:59 AM [facility] ABSOLUTE MONOCYTES 0.79 0.20 - 1.00 10(3)/mcL 06/29/2025 1:59 AM [facility] ABSOLUTE EOSINOPHIL 0.20 0.00 - 0.40 10(3)/[facility] 06/29/2025 1:59 AM [facility] ABSOLUTE BASOPHILS 0.04 0.00 - 0.10 10(3)/[facility] 06/29/2025 1:59 AM [facility] ABSOLUTE IMMATURE GRANULOCYTE 0.02 0.00 - 0.03 10 (3) mcL. 06/29/2025 1:59 AM [facility] NRBC PER 100 WBC 0 06/29/20 1:59 AM [facility] Blood Venipuncture / Unknown 06/29/2025 1:51 AM CAMPUS RECRUITING COORDINATOR 06/29/2025 1:57 AM CAMPUS RECRUITING COORDINATOR Melvin Bravo MD HEMATOLOGY ORDERABLES Fin al Result Performing Organization Address [facility] Co de Phone Number [facility] [address] [place] [address] * PTT (06/29/2025 1:51 AM CAMPUS RECRUITING COORDINATOR) PTT 30 24 - 36 sec 06/29/2025 3:26 AM CAMPUS RECRUITING COORDINATOR [facility] Blood Venipuncture / Unknown 06/29/2025 1:51 AM CAMPUS RECRUITING COORDINATOR 06/29/2025 1:57 AM CAMPUS RECRUITING COORDINATOR Narrative [facility] - 06/29/2025 3:26 AM CAMPUS RECRUITING COORDINATOR Therapeutic range for unfractionated heparin at 0.3-0.7 U/mL is an aPTT value in the range of 71-100 seconds. Critical value for the PTT test is >= 122 seconds. Melvin Bravo MD HEMATOLOGY ORDERABLES Fin al Result Performing Organization Address [facility] Co de Phone Number [facility] [address] [place] [address] * PT / INR (06/29/2025 1:51 AM CAMPUS RECRUITING COORDINATOR) PROTIME-PATIENT 12.6 11.6 - 14.8 sec 06/29/2025 3:26 AM CAMPUS RECRUITING COORDINATOR [facility] INR 0.9 0.9 - 1.2 06/29/2025 3:26 AM CAMPUS RECRUITING COORDINATOR [facility] Comment: Therapeutic Ranges INR = 2.0-3.0: Venous thromb, atrial fib, pul embolism, tissue heart valve, ami. INR = 2.5-3.5: Mechanical heart valve Critical value for INR is >/= 4.5 Blood Venipuncture / Unknown 06/29/2025 1:51 AM CAMPUS RECRUITING COORDINATOR 06/29/2025 1:57 AM CAMPUS RECRUITING COORDINATOR us Melvin Bravo MD HEMATOLOGY ORDERABLES Fin al Result [facility] [address] [place] [address] * Human Chorionic Gonadotropin Scrn Serum (06/29/2025 1:51 AM CAMPUS RECRUITING COORDINATOR) PREG-HCG Negative Negative 06/29/2025 2:14 AM CAMPUS RECRUITING COORDINATOR [facility] Blood Venipuncture / Unknown 06/29/2025 1:51 AM CAMPUS RECRUITING COORDINATOR 06/29/2025 1:57 AM CAMPUS RECRUITING COORDINATOR Melvin Bravo MD CHEMISTRY ORDERABLES Emely l Result Performing Organization Address City/[facility] Co de Phone Number [facility] [address] [place] [address] * (ABNORMAL) CMP (Comprehensive Metabolic Panel) (06/29/2025 1:51 AM CAMPUS RECRUITING COORDINATOR) SODIUM 142 136 - 145 mmol/L 06/29/2025 2:18 AM [facility] POTASSIUM 4.0 3.5 - 5.1 mmol/L 06/29/2025 2:18 AM [facility] CHLORIDE 104 98 - 107 mmol/L 06/29/2025 2:18 AM [facility] CO2, VENOUS 28 22 - 30 mmol/L 06/29/2025 2:18 AM [facility] ANION GAP 14.0 <18.0 mmol/L 06/29/2025 2:18 AM [facility] GLUCOSE 93 70 - 99 mg/dL 06/29/2025 2:18 AM [facility] BUN 14 5 - 18 mg/dL 06/29/2025 2:18 AM [facility] CREATININE, BLOOD 1.11(H) 0.60 - 1.00 mg/dL 06/29/2025 2:18 AM [facility] BUN/CREATININE RATIO 13 12 - 20 ratio 06/29/2025 2:18 AM [facility] TOTAL PROTEIN 7.1 6.0 - 8.0 g/dL 06/29/2025 2:18 AM [facility] ALBUMIN 4.5 3.5 - 5.0 g/dL 06/29/2025 2:18 AM [facility] A/G RATIO 1.7 1.0 - 2.2 06/29/2025 2:18 AM [facility] CALCIUM 9.3 8.7 - 10.5 mg/dL 06/29/2025 2:18 AM [facility] T BILI 0.2 0.2 - 1.2 mg/dL 06/29/2025 2:18 AM [facility] SGOT (AST) 26 <43 U/L 06/29/2025 2:18 AM [facility] SGPT (ALT) 22 <56 U/L 06/29/2025 2:18 AM [facility] ALKALINE PHOSPHATASE 58 40 - 150 U/L 06/29/2025 2:18 AM [facility] GFR, ESTIMATED >60 >=60 06/29/2025 2:18 AM [facility] Comment: Creatinine Clearance is the preferred criteria for selecting drug dose adjustments in renally impaired patients. The GFR is provided as additional pertinent clinical information. GFR is reported in mL/min/1.73 sq m. Calculation based on the 2020 Chronic Kidney Disease Epidemiology Collaboration (CKD-EPI) equation refit without adjustment for race. GFR, EST. >60 >=60 2:18 AM [facility] Comment: Creatinine Clearance is the preferred criteria for selecting drug dose adjustments in renally impaired patients. The GFR is provided as additional pertinent clinical information. GFR is reported in mL/min/1.73 sq m. Calculation based on the 2009 Chronic Kidney Disease Epidemiology Collaboration (CKD-EPI). GFR, EST. NONAFRICAN 54(L) >=60 06/29/2025 2:18 AM [facility] Comment: Creatinine Clearance is the preferred criteria for selecting drug dose adjustments in renally impaired patients. The GFR is provided as additional pertinent clinical information. GFR is reported in mL/min/1.73 sq m. Calculation based on the 2009 Chronic Kidney Disease Epidemiology Collaboration (CKD-EPI). Blood Venipuncture / Unknown 06/29/2025 1:51 AM CAMPUS RECRUITING COORDINATOR 06/29/2025 1:57 AM CAMPUS RECRUITING COORDINATOR us Melvin Bravo MD CHEMISTRY ORDERABLES Emely l Result Performing Organization Address City/[facility]/ZIP Co de Phone Number [facility] [address] [place] [address] * EKG 12 LEAD (06/29/2025 1:37 AM CAMPUS RECRUITING COORDINATOR) Ventricular Rate 94 BPM EXTERNAL EKG Atrial Rate 94 BPM EXTERNAL EKG P-R Interval 156 ms EXTERNAL EKG QRS Duration 84 ms EXTERNAL EKG Q-T Duration 356 ms EXTERNAL EKG QTC CALCULATION 445 ms EXTERNAL EKG P Henderson 62 degrees EXTERNAL EKG R Henderson 72 degrees EXTERNAL EKG T Henderson 61 degrees EXTERNAL EKG 06/29/2025 1:37 AM CAMPUS RECRUITING COORDINATOR Impressions EXTERNAL EKG - 06/29/2025 1:50 PM CAMPUS RECRUITING COORDINATOR Normal sinus rhythm Possible Left atrial enlargement Borderline ECG No previous ECGs available Confirmed by TYLOR MACHADO ([id number]) on 06/29/2025 1:50:19 PM Narrative Procedure Note Tylor Machado MD - 06/29/2025 IMPRESSION: Normal sinus rhythm Possible Left atrial enlargement Borderline ECG No previous ECGs available Confirmed by TYLOR MACHADO ([id number]) on 06/29/2025 1:50:19 PM us Melvin Bravo MD IMG ECG ORDERABLES Final Result Performing Organization Address City/[facility] Co de Phone Number EXTERNAL EKG * EKG SCAN (06/29/2025 12:00 AM CAMPUS RECRUITING COORDINATOR) 06/29/2025 us Provider Scan IMG ECG ORDERABLES Final Result RESULTING AGENCY from Last 3 Months Insurance MEDICAID [employer] Care Teams Inspector Semiconductor Wafer Relationship Specialty Start Date End Date Clara Shepherd, ASSISTANT TRACK AND FIELD COACH, CELERY PACKER [address] [facility] , [address] [address] PCP - General Advanced Practice Nurse 06/29/25
--- OUTSIDE RECORDS SUMMARY | 2025-06-30 15:56 | XMS_ITS | Clinical Summary ---
Author Organization [facility] Address [address] [place] [address] Care Team Providers Care Parking Technician Name Role Phone None, Physician Primary Care Provider Unavailabl e Source Comments [facility] [employer]non-owned Affiliates and Associated Physician Practices is amultiple site organization consisting of ambulatory clinics and hospital sitesin [place], [place], [place] and [place]. This disclosure is being madepursuant to the Care Everywhere program and may not contain all information available regarding this patient. Last updated 18.[facility] [employer] Allergies No known active allergies Medications * Be aware that medications may not be up to date on this document. Alwaysverify current medications with the patient. acetaminophen (Tylenol) 325 MG tablet Take 2 (two) tablets by mouth every 6 hours as needed for Headache (No more than 4 times a week) Maximum allowable Acetaminophen amount = 4 Grams (4000 mg) / 24 hours. 60 tablet 2 2 Active propranolol CR 24hr (Inderal LA) 80 MG capsule Take 1 (one) capsule by mouth once daily 60 capsule 1 2 Active magnesium oxide (Mag-Ox) 400 MG tablet Take 1 (one) tablet by mouth 2 times daily 120 tablet 2 2 Active Active Problems Problem Noted Date Diagnosed Date History of cigarette smoking 06/27/2022 Tension headache 06/27/2022 Intracranial hemorrhage 06/26/2022 Social History Tobacco Use Types Packs/Day Years Used Date Smoking Tobacco: Every Day Cigarettes Smokeless Tobacco: Never Tobacco Cessation:Ready to Q uit: Not Asked; Counseling Given: Not Answered AUDIT-C Answer Date Recorded Q1: How often do you have a drink containing alc ohol? Monthly or less 06/27/2022 Q2: How many drinks containi ng alcohol do you have on a typical day when you are drinking? 1 or 2 06/27/2022 Q3: How often do you have si x or more drinks on one occasion? Less than monthly 06/27/2022 Hunger Vital Sign Answer Date Recorded Within the past 12 months, y ou worried that your food would run out before you got the money to buy more. Never true 06/27/20 22 Within the past 12 months, t he food you bought just didn't last and you didn't have money to get more. Never true 06/27/2022 Comments No Sex and Gender Information Value Date Recorded Sex Assigned at Not on file Legal Sex Female 7:25 PM CHEMISTRY TECHNICAL OFFICER Gender Identity Not on file Sexual Orientation Not on file Last Filed Vital Signs Vital Sign Reading Time Taken Comments Blood Pressure 146/95 09/26/2024 4:15 PM CHEMISTRY TECHNICAL OFFICER Pulse 106 09/26/2024 3:25 PM CHEMISTRY TECHNICAL OFFICER Temperature 36.6 C (97.9 F) 09/26/2024 3:25 PM CHEMISTRY TECHNICAL OFFICER Respiratory Rate 17 09/26/2024 3:25 PM CHEMISTRY TECHNICAL OFFICER Oxygen Saturation 97% 09/26/2024 4:15 PM CHEMISTRY TECHNICAL OFFICER Inhaled Oxygen Concentration - - Weight 60.5 kg (133 lb 6.1 oz) 06/27/2022 9:18 A M CHEMISTRY TECHNICAL OFFICER Height 170.2 cm (5' 7) 09/26/2024 3:25 PM CHEMISTRY TECHNICAL OFFICER Body Mass Index 20.88 06/27/2022 9:18 AM CHEMISTRY TECHNICAL OFFICER Plan of Treatment Health Maintenance Due Date Last Done Comments LIPID TESTING 1984 MAMMOGRAM 1984 HIV SCREENING 1999 HEPATITIS C SCREENING 04/11/2002 DTAP/TDAP/TD VACCINES (1 - Tdap) 2003 HEPATITIS B VACCINE (1 of 3 - 19+ 3-dose series) 2003 PNEUMOCOCCAL VACCINE (1 of 2 - PCV) 2003 PAP SMEAR 2005 HPV VACCINE (1 - 3-dose SCDM series) 2011 DEPRESSION SCREENING 07/26/2024 COVID-19 VACCINE (1 - 2024-2 6 season) 2025 INFLUENZA VACCINE (#1) 2025 ZOSTER VACCINE (1 of 2) 2034 HIB VACCINE Aged Out No longer eligi ble based on patient's age to complete this topic MENINGOCOCCAL (Group B) VACC INE SHARED DECISION-MAKING Aged Out No longer eligibl e based on patient's age to complete this topic MENINGOCOCCAL GROUPS A/C/Y/W VACCINE Aged Out No longer eligible b ased on patient's age to complete this topic Insurance Advance Directives * Full Code (Latest Code Status on File) Date Activated Date Inactivated Comments 06/27/2022 6:41 AM 06/28/2022 3:20 PM Care Teams Parking Technician Relationship Specialty Start Date End Date None, Physician [address] [place] [address] PCP - General 09/26/24
--- OUTSIDE RECORDS SUMMARY | 2025-06-30 15:56 | XMS_ITS | Encounter Summary ---
Author Organization [facility] Healthcare Address [address] [place] [id number] Care Team Providers Care Lesson Instructor Name Role Phone Clara Shepherd TOOL MECHANIC Primary Care Provider Reason for Visit * Reason Onset Date Comments Medication Request 06/29/2025 Encounter Details Date Type Department Care Team (Late st Contact Info) Description 06/29/2025 Telephone [facility] Medical Group Primary Care at [address] [place] [address] Clara Shepherd, CHARLINE [address] [place] [address] [address] [place], [place] [id number] Medication Request Social History Tobacco Use Types Packs/Day Years Used Date Smoking Tobacco: Every Day Cigarettes 1 22.9 Started: 2002 Alcohol Use Standard Drinks/Week Comments Never 0 [...] on file documented as of this encounter Miscellaneous Notes * Telephone Encounter - Nieves Hilton MA - 06/29/2025 3:43 PM CIRCULATION CREW LEADER Please advise ULATION CREW LEADER * Telephone Encounter - Izabel Suero - 06/29/2025 1:25 PM CIRCULATION CREW LEADER Medication Question/Clarification Medication Name(s)/Dose: Medication for STD What is the question or clarification needed? Patient states she was seen at [facility] on 06/26 for high BP reasons and they did a urine test and told her she had a yeast infection and gave her 2 pills for it that hasn't helped. Patient is sure she has an STD of chlamydia or gonorrhea because she's had itbefore in the past and has the same symptoms so she's asking if CHARLINE Elizabeth will prescribe her medication for it Rogelio. If needed, Pharmacy(s) medication(s) should be sent to: On file Additional Comments: please let patient know if an Rx will be sent in for her or not. Does message need to be routed? Yes-Action Needed ULATION CREW LEADER documented in this encounter Plan of Treatment Not on file documented as of this encounter Visit Diagnoses Not on filedocumented in this encounter Care Teams Lesson Instructor Relationship Specialty Start Date End Date Clara Shepherd NP [address] [place] [address] DR CUELLAR [address] [place] [id number] PCP - General Family Medicine 01/24/25 documented as of this encounter
--- OUTSIDE RECORDS SUMMARY | 2025-06-30 15:56 | XMS_ITS | Clinical Summary ---
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 Name Role Phone None, Provider MD Primary Care Provider Unavaila ble Allergies No known active allergies Medications No known medications Active Problems No known active problems Family History Medical History Relation Comments No Known Problems Brother No Known Problems Father No Known Problems Mother Relation Status Comments Brother Alive Father Alive Mother Alive Social History Tobacco Use Types Packs/Day Years Used Date Smoking Tobacco: Every Day Cigarettes Smokeless Tobacco: Never Alcohol Use Standard Drinks/Week Comments Not Currently 0 (1 standard drink = 0.6 oz pur e alcohol) Comments No Sex and Gender Information Value Date Recorded Sex Assigned at Not on file Legal Sex Female 10:17 PM CDT Gender Identity Not on file Sexual Orientation Not on file Last Filed Vital Signs Vital Sign Reading Time Taken Comments Blood Pressure 134/87 06/23/2022 8:00 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 Pulse 85 06/23/2022 6:10 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 Temperature 36.8 C (98.2 F) 06/23/2022 6:10 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 Respiratory Rate 18 06/23/2022 6:10 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 Oxygen Saturation 98% 06/23/2022 8:00 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 Inhaled Oxygen Concentration - - Weight 56.7 kg (125 lb) 06/23/2022 6:10 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 Height 170.2 cm (5' 7) 06/23/2022 6:10 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 Body Mass Index 19.58 06/23/2022 6:10 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 Plan of Treatment Health Maintenance Due Date Last Done Comments Cervical Cancer Screening Pa p Smear (Age 30 to 64) Every 3 Years 1984 Annual Physical 1987 Hepatitis C 2002 DTaP, Tdap and Td Vaccines ( 1 - Tdap) 2003 Hepatitis B Vaccines (1 of 3 - 19+ 3-dose series) 2003 Pneumococcal Vaccine: Pediat rics (0 to 5 Years) and At-Risk Patients (6 to 49 Years) (1 of 2 - PCV) 2003 HPV Vaccines (1 - 3-dose SCD M series) 2011 Cervical Cancer Screening Pa p with HPV Testing (Age 30 to 64) Every 5 Years 2014 Cervical Cancer Screening with HPV 2014 Mammogram Screening 2024 COVID-19 Vaccine (1 - 2024-2 6 season) 2025 Influenza Adult (#1) 2025 Hepatitis A Vaccines Aged Out No long er eligible based on patient's age to complete this topic Meningococcal B Vaccine Aged Out No l onger eligible based on patient's age to complete this topic Meningococcal Vaccine Aged Out No antonia tiesha eligible based on patient's age to complete this topic RSV Immunizations Under 20 Months Aged Out No longer eligible based on patient's age to complete this topic Insurance [employer] Care Teams Ice Plant Operator Relationship Specialty Start Date End Date None, Provider, PCP - General 03/27/22
[2025-06-30 16:03] VITALS: BP 144/90; PULSE 92; RESP 20; TEMP 36.6; O2SAT 100
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
[2025-06-30 16:12] LABS: EDUAAPPEAR Clear; EDUABILI Negative (Negative); EDUABLOOD Negative (Negative); EDUACOLOR1 Yellow; EDUAGLUCOSE Negative (Negative); EDUAKETONE Negative (Negative); EDUALEUKO 1+ (Negative); EDUANITRATE Negative (Negative); EDUAPH 6.5; EDUAPROTEIN Negative (Negative); EDUASPGRAVITY 1.025; EDUAUROBILI 0.2
[2025-06-30] MEDS: cefTRIAXone 500 MG, LIDOCAINE 1% LOCAL INJ 1 ML IM (16:20)
[2025-06-30 19:39] LABS: Trichomonas Vag PCR DETECTED (NOT DETECTE)
== END 2025-06-30 16:36 | disposition home or self-care (01) ==
PROVIDERS: Emergency Provider Nurse Practitioner Family
DX: A59.9 Trichomoniasis, unspecified (principal); I10 Essential (primary) hypertension
CPT/HCPCS: 81003; 87086; 87491; 87591; 87661; 96372; 99213; G0463; J0696; J2003